=== PATIENT | female | born 1990 | race Caucasian/White ===

== ENCOUNTER 2016-12-31 15:50 | Outpatient (CLI) | payer OTHER ==
[2016-12-31 16:02] VITALS: BP 129/74; PULSE 99; RESP 16; TEMP 98.2
[2016-12-31] MEDS ORDERED: LACTATED RINGERS 1,000 ML IV SCH (16:45)
--- NOTE | 2017-01-01 14:04 | P.MSEPDOC ---
Presenting Problems - Arrival Data Date of Arrival on Unit: 12/31/16 Time of Arrival on Unit: 15:50 Mode of Transport: Ambulatory - Complaint OB-Reason for Admission/Chief Complaint: Decreased Movement Medical History - Information : 5 Para: 3 Term: 3 : 0 Abortions: Spontaneous or Elective: 1 Number of Living Children: 3 - Gestational Age Expected Date of Delivery: 01/29/17 Gestational Age by HECTOR (wks/days): 36 Weeks and 0 Days - History Complications: Prior Review of Systems - Review of Systems Constitutional: No problems Breast: No problems ENT: No problems Cardiovascular: No problems Respiratory: No problems Gastrointestinal: No problems Genitourinary: No problems Musculoskeletal: No problems Neurological: No problems Skin: No problems Vital Signs - Temperature Temperature: 98.2 F Temperature Source: Oral - Pulse Right Sitting Brachial Pulse Rate: 99 Pulse Assessment Method: Automatic Cuff - Respirations Respiratory Rate: 16 Oxygen Delivery Method: Room Air - Blood Pressure Right Arm Blood Pressure: 129/74 Blood Pressure Mean: 92 Blood Pressure Source: Automatic Cuff Medical Screen Scoring (Post) - Cervical Exam Dilation: Exam Deferred Effacement: Exam Deferred Membranes: Intact - Uterine Contractions Frequency: N/A - Maternal Vital Signs Maternal Temperature: N/A Maternal Blood Pressure: N/A Signs of Preeclampsia: N/A Maternal Respirations: N/A - Maternal Trauma Maternal Trauma: N/A - Assessment Heart Rate: 135 Heart Rate - NICHD Category: Category I (Normal) = 0 NST: Reactive Position: N/A Station: N/A - Total Score Total Score (Post): 0 - Post Treatment Level of Risk Post Treatment Level of Risk: Low (0-5) Physician Notification (Post) - Physician Notified Physician Notified Date: 12/31/16 Physician Notified Time: 16:30 Physician/Practitioner Notified:: Dr Breen Spoke With: Telephone New Order Received: Yes - Notification Comment Comment: Okay to discharge patient due to reactive heart tones. Disposition - Disposition OB Disposition: Discharge to home Discharge Date: 12/31/16 Discharge Time: 18:35 I agree with the RN Medical Screening Exam: Yes Risk & Benefit of care provided described in d/c instruction: Yes Diagnosis: DECREASED MOVEMENTS, UNSP TRIMESTER, UNSP
== END 2016-12-31 18:35 | disposition home or self-care (01) ==
LOC: FBPOP 15:50
PROVIDERS: ATTEND Obstetrics & Gynecology
DX: O36.8130 Decreased fetal movements, third trimester, not applicable or unspecified (principal); Z3A.36 36 weeks gestation of pregnancy
CPT/HCPCS: 59025; 96360; G0463; 99214

== ENCOUNTER 2017-01-05 12:50 | Outpatient (CLI) | payer OTHER ==
[2017-01-05 12:58] VITALS: BP 122/71; PULSE 101; RESP 17; TEMP 97.4
--- NOTE | 2017-01-09 08:18 | P.MSEPDOC ---
Presenting Problems - Arrival Data Date of Arrival on Unit: 01/05/17 Time of Arrival on Unit: 12:50 Mode of Transport: Ambulatory - Complaint OB-Reason for Admission/Chief Complaint: Pain Comment: headache last 4 days unrelieved with tylenol Medical History - Information : 5 Para: 3 Term: 3 : 0 Abortions: Spontaneous or Elective: 1 Number of Living Children: 3 - Gestational Age Expected Date of Delivery: 01/29/17 Gestational Age by HECTOR (wks/days): 37 Weeks and 1 Days Review of Systems - Review of Systems Constitutional: No problems Breast: No problems ENT: No problems Cardiovascular: No problems Respiratory: No problems Gastrointestinal: No problems Genitourinary: No problems Musculoskeletal: No problems Neurological: No problems Skin: No problems Vital Signs - Temperature Temperature: 97.4 F Temperature Source: Temporal Artery Scan - Pulse Right Brachial Pulse Rate: 101 Pulse Assessment Method: Automatic Cuff - Respirations Respiratory Rate: 17 Oxygen Delivery Method: Room Air O2 Sat by Pulse Oximetry: 98 - Blood Pressure Right Arm Blood Pressure: 122/71 Blood Pressure Mean: 88 Blood Pressure Source: Automatic Cuff Medical Screen Scoring (Pre) - Cervical Exam Dilation: Exam Deferred Effacement: Exam Deferred Membranes: Intact - Uterine Contractions Frequency: N/A Duration: N/A Intensity: N/A - Maternal Vital Signs Maternal Temperature: N/A Maternal Blood Pressure: N/A Signs of Preeclampsia: N/A Maternal Respirations: N/A - Maternal Trauma Maternal Trauma: N/A - Assessment Baseline FHR: 145 Heart Rate - NICHD Category: Category I (Normal) = 0 NST: Reactive Position: N/A Station: N/A - Total Score Total Score (Pre): 0 - Level of Risk Level of Risk: Low (0-5) Physician Notification (Pre) - Physician Notified Physician Notified Date: 01/05/17 Physician Notified Time: 13:11 Physician/Practitioner Notifed:: dr raymond Spoke With: dr raymond New Order Received: No - Notification Comment Comment: pt ok to dc home Disposition - Disposition OB Disposition: Discharge to home, Written follow up instructions reviewed Discharge Date: 01/05/17 Discharge Time: 13:35 I agree with the RN Medical Screening Exam: Yes Risk & Benefit of care provided described in d/c instruction: Yes Diagnosis: HEADACHE
== END 2017-01-05 13:35 | disposition home or self-care (01) ==
LOC: FBPOP 12:50
PROVIDERS: ATTEND Obstetrics & Gynecology
DX: O99.89 Other specified diseases and conditions complicating pregnancy, childbirth and the puerperium (principal); R51 Headache; Z3A.37 37 weeks gestation of pregnancy
CPT/HCPCS: 59025; G0463; 99213

== ENCOUNTER 2017-01-14 09:21 | Inpatient (IN) | payer OTHER ==
[2017-01-14] MEDS ORDERED: CITRIC ACID-SODIUM CITRATE 15 ML CUP PO ONE (09:29)
[2017-01-14] MEDS ORDERED: LACTATED RINGERS 1,000 ML IV ONE (09:29)
[2017-01-14] MEDS ORDERED: CLINDAMYCIN 600 MG in DEXTROSE 5% IN WATER 50 ML IVPB STA ×2 (09:58)
[2017-01-14 10:01] LABS: Basophils % (A) 0 %; CH 29.9; CHCM 34.1; Eosinophils # (A) 0.1 k/uL (0-0.7); Eosinophils % (A) 1 %; HCT 30.5 % (34.0-46.0); HDW 3.73; HGB 10.3 gm/dL (11.4-16.0); Luc # (Auto) 0.27; Luc % (Auto) 2; Lymphocytes # (A) 2.5 k/uL (1.0-4.8); Lymphocytes % (A) 20 %; MCH 29.8 pg (25.0-35.0); MCHC 33.8 g/dL (31.0-37.0); MCV 88.2 fL (80.0-100.0); Mean Platelet Volume 8.1; Monocytes # (A) 0.7 k/uL (0-1.0); Monocytes % (A) 6 %; Neutrophils # (A) 8.8 k/uL (1.3-7.7); Neutrophils % (A) 71 %; Poikilocytosis Slight; RBC 3.46 m/uL (3.80-5.40); RDW 13.5 % (11.5-15.5); WBC 12.4 k/uL (3.8-10.6); WBC (Perox) 12.84
[2017-01-14] MEDS: LACTATED RINGERS 1,000 ML IV SCH (12:02)
[2017-01-14] MEDS ORDERED: MORPHINE SULFATE (PF) 0.3 MG/0.3 ML SYR ONE (12:17)
[2017-01-14] MEDS ORDERED: KETOROLAC 30 MG/ML 1 ML VIAL ONE (12:17)
[2017-01-14] MEDS ORDERED: OXYTOCIN 10 UNIT/ML 1 ML VIAL ONE (12:17)
[2017-01-14] MEDS ORDERED: ONDANSETRON 4 MG/2 ML VIAL ONE (12:17)
[2017-01-14] MEDS ORDERED: NALBUPHINE 10 MG/ML AMPUL ONE (12:17)
[2017-01-14] MEDS ORDERED: ePHEDrine 50 MG/ML 1 ML AMP ONE (12:17)
--- NOTE | 2017-01-14 12:17 | P.HPOB ---
History of Present Illness H&P Date: 01/14/17 Chief Complaint: SROM, previous 26 year old presented at 37 weeks 6 days to my office today complaining of leaking fluid sine 830am. +ferning, +pooling. heart tones are 140-145 with moderate variability and reactive. cervix is closed/50/-3. She is not sheryl and will have a RLTCS with TL. Review of Systems All systems: negative Constitutional: Denies chills, Denies fever Eyes: denies blurred vision, denies pain Ears, nose, mouth and throat: Denies headache, Denies sore throat Cardiovascular: Denies chest pain, Denies shortness of breath Respiratory: Denies cough Gastrointestinal: Denies abdominal pain, Denies diarrhea, Denies nausea, Denies vomiting Genitourinary: Denies dysuria, Denies hematuria Musculoskeletal: Denies myalgias Integumentary: Denies pruritus, Denies rash Neurological: Denies numbness, Denies weakness Psychiatric: Denies anxiety, Denies depression Endocrine: Denies fatigue, Denies weight change Past Medical History Past Medical History: No Reported History Additional Past Medical History / Comment(s): Obstetric history: First was a spontaneous . The next 3 pregnancies were deliveries with no complications. This is her fifth . She has had care with me since 6 weeks gestation. A+, abs neg, Rub Imm, RPR NR, Hep B neg, HIV NR, normal 1hr GTT and normal anatomy US. History of Any Multi-Drug Resistant Organisms: None Reported Past Surgical History: Appendectomy, Section, Orthopedic Surgery Additional Past Surgical History / Comment(s): bunions Past Anesthesia/Blood Transfusion Reactions: No Reported Reaction Past Psychological History: No Psychological Hx Reported Smoking Status: Never smoker Past Alcohol Use History: None Reported Past Drug Use History: None Reported - Past Family History Mother History Unknown: Yes Family Medical History: No Reported History Medications and Allergies Allergies Allergy/AdvReac Type Severity Reaction Status Date / Time Cephalosporins Allergy Intermediate Rash/Hives Verified 01/14/17 09:28 Exam Osteopathic Statement: *. No significant issues noted on an osteopathic structural exam other than those noted in the History and Physical/Consult. - Vital Signs Vital signs: Vital Signs Temp Pulse Resp BP Pulse Ox 01/14/17 10:02 97.6 F 99 18 124/79 97 Intake and Output 01/13/17 01/14/17 01/14/17 22:59 06:59 14:59 Other: Weight 87.997 kg Patient Weight 01/15/17 06:59 Weight 87.997 kg HEart: RRR Lungs: CTAB Abdomen: soft, nontender Extremeties: neg tyler's Results Result Diagrams: 01/14/17 09:40 Abnormal Lab Results - Last 24 Hours (Table) 01/14/17 Range/Units 09:40 WBC 12.4 H (3.8-10.6) k/uL RBC 3.46 L (3.80-5.40) m/uL Hgb 10.3 L (11.4-16.0) gm/dL Hct 30.5 L (34.0-46.0) % Neutrophils # 8.8 H (1.3-7.7) k/uL Assessment and Plan (1) Spontaneous rupture of membranes Status: Acute (2) Previous section Status: Acute (3) Family planning Status: Acute Plan: 1. RLTCS with TL
[2017-01-14] MEDS ORDERED: NALOXONE 0.4 MG/ML 1 ML VIAL IV PRN (12:41)
[2017-01-14] MEDS ORDERED: diphenhydrAMINE 50 MG/ML 1 ML VIAL IVP PRN ×2 (12:41→13:05)
[2017-01-14] MEDS ORDERED: MORPHINE SULFATE 4 MG/ML SYRINGE IVP PRN (12:41)
[2017-01-14] MEDS ORDERED: ONDANSETRON 4 MG/2 ML VIAL IVP PRN (12:41)
[2017-01-14] MEDS ORDERED: METOCLOPRAMIDE 5 MG/ML 2 ML VIAL IVP PRN (13:05)
[2017-01-14] MEDS ORDERED: diphenhydrAMINE 50 MG CAP PO PRN (13:05)
[2017-01-14] MEDS ORDERED: ACETAMINOPHEN TAB 325 MG TAB PO PRN (13:05)
[2017-01-14] MEDS ORDERED: diphenhydrAMINE 25 MG CAP PO PRN (13:05)
[2017-01-14] MEDS ORDERED: Acetaminophen-Codeine 300-30mg TAB PO PRN ×2 (13:05)
[2017-01-14] MEDS ORDERED: SIMETHICONE 80 MG CHEWABLE PO PRN (13:05)
[2017-01-14] MEDS ORDERED: ZOLPIDEM 5 MG TAB PO PRN (13:05)
--- NOTE | 2017-01-14 13:09 | P.OP ---
Date of Procedure: 01/14/17 Preoperative Diagnosis: 1. at 37 weeks and 6 days 2. Spontaneous rupture membranes 3. Previous section 4. Family planning Postoperative Diagnosis: 1. at 37 weeks and 6 days 2. Spontaneous rupture membranes 3. Previous section 4. Family planning Procedure(s) Performed: Repeat low transverse with tubal ligation Anesthesia: spinal Surgeon: Selin Flores Professor Of Religion #1: Dilia Buchanan Estimated Blood Loss (ml): 500 IV fluids (ml): 800 Urine output (ml): 75 Pathology: other (Placenta, portions of bilateral fallopian tubes) Condition: stable Disposition: floor Operative Findings: Viable female, Apgars 9, 9, weight 7 lbs. 4 oz. Description of Procedure: Patient was taken to the operating room where spinal anesthesia was found be adequate. She was prepped and draped in normal sterile fashion in dorsal supine position with a leftward tilt. Pfannenstiel skin incision was made the scalpel and carried through to the underlying layer of fascia with the scalpel. Fascia was incised in midline and carried bilaterally with the Leyva scissors. The superior aspect of the fascial incision was grasped with Parker clamps elevated and the underlying rectus muscles dissected off with the Leyva's. Attention was then turned to inferior aspect of same incision which in a similar fashion was grasped tented up and the underlying rectus muscles dissected off with the Leyva's. The rectus muscles were the midline and the peritoneum was identified tented up and entered sharply with the scalpel. The incision was extended superiorly and inferiorly with good visualization of the bladder. The bladder blade was inserted and the vesicouterine peritoneum was incised the Metzenbaums then carried bilaterally and bladder flap created digitally. A low transverse incision was then made on the uterus with the scalpel. This was carried bilaterally and digital manner. 's head delivered atraumatically, nose and mouth bulb suctioned, cord clamped and cut, infant handed off to waiting nurses. Apgars 9,9, weight 7 lbs. 4 oz. Placenta delivered manually, intact with three-vessel cord. The uterus is exteriorized and cleared of all clots and debris. The uterine incision was closed with 0 Vicryl in a running locked fashion. Both ovaries and tubes appeared normal. The right fallopian tube was grasped with a hemostat and a window was made in the mesosalpinx with the Bovie. The right fallopian tube was doubly ligated and a portion was removed. The pedicles were cauterized with the Bovie. The left fallopian tube was grasped with a hemostat and a window was made in the mesosalpinx with the Bovie. The left fallopian tube was doubly ligated and a portion was removed. The pedicles were cauterized with the Bovie. The uterus was placed back into the abdomen. The peritoneum was reapproximated using 2-0 Vicryl in a running fashion. The muscles were reapproximated using 2-0 Vicryl in interrupted fashion. The fascia was reapproximated using 0 Vicryl in a running fashion. The subcutaneous tissues closed with 3-0 Vicryl running fashion. The skin was closed mark. Patient tolerated the procedure well, sponge and instrument counts were correct times 2 and she was taken to the recovery room in stable condition.
[2017-01-14] MEDS ORDERED: OXYTOCIN 20 UNITS/1000 ML NS 1,000 ML IV SCH (13:15)
[2017-01-14] MEDS: diphenhydrAMINE 50 MG/ML 1 ML VIAL IVP PRN ×2 (14:33→23:15)
[2017-01-14] MEDS ORDERED: HYDROmorphone 1 MG/ML 1 ML SYRINGE IVP STA (16:36)
[2017-01-14 16:39] LABS: Basophils % (A) 0 %; CH 30.2; CHCM 34.7; Eosinophils # (A) 0.1 k/uL (0-0.7); Eosinophils % (A) 1 %; HCT 26.3 % (34.0-46.0); Luc # (Auto) 0.17; Luc % (Auto) 1; Lymphocytes % (A) 14 %; MCHC 34.2 g/dL (31.0-37.0); MCV 87.8 fL (80.0-100.0); Mean Platelet Volume 8.4; Monocytes # (A) 0.8 k/uL (0-1.0); Monocytes % (A) 4 %; Neutrophils % (A) 81 %; Poikilocytosis Slight; RDW 13.3 % (11.5-15.5); WBC 21.1 k/uL (3.8-10.6); WBC (Perox) 19.81
[2017-01-14] MEDS: KETOROLAC 30 MG/ML 1 ML VIAL IVP SCH ×2 (17:13→23:11)
[2017-01-15] MEDS: SENNOSIDES-DOCUSATE SODIUM 1 EACH TAB PO SCH ×3 (00:20→19:42)
[2017-01-15] MEDS: LACTATED RINGERS 1,000 ML IV SCH ×3 (00:43→08:29)
[2017-01-15] MEDS: KETOROLAC 30 MG/ML 1 ML VIAL IVP SCH ×2 (05:43→12:42)
[2017-01-15 07:26] LABS: Basophils % (A) 0 %; CH 29.6; CHCM 34.3; Eosinophils # (A) 0.1 k/uL (0-0.7); Eosinophils % (A) 1 %; HDW 3.97; Luc # (Auto) 0.14; Luc % (Auto) 1; Lymphocytes # (A) 2.2 k/uL (1.0-4.8); Lymphocytes % (A) 20 %; MCH 29.4 pg (25.0-35.0); MCHC 33.8 g/dL (31.0-37.0); MCV 87.1 fL (80.0-100.0); Mean Platelet Volume 8.8; Monocytes # (A) 0.7 k/uL (0-1.0); Monocytes % (A) 6 %; Neutrophils # (A) 7.6 k/uL (1.3-7.7); Neutrophils % (A) 71 %; Poikilocytosis Slight; RBC 2.12 m/uL (3.80-5.40); RDW 13.6 % (11.5-15.5); WBC 10.7 k/uL (3.8-10.6); WBC (Perox) 10.06
[2017-01-15 07:36] LABS: HCT 18.4 % (34.0-46.0); HGB 6.2 gm/dL (11.4-16.0)
[2017-01-15] MEDS ORDERED: HYDROmorphone 1 MG/ML 1 ML SYRINGE IVP PRN (08:24)
--- NOTE | 2017-01-15 08:35 | P.PNOBGPC ---
Subjective - Subjective Principal diagnosis: S/P RLTCS with TL POD #1 Interval history: Patient seen and examined. Denies N/V, F/C, CP, SOB, calf pain. She is having some incisional and uterine discomfort rating an 8/10 despite tylenol #3 and toradol. Will give one dose of dilaudid and then change the tylenol #3 to norco. She did have some bleeding after the surgery yesterday, passed several large clots. I expressed those clots last night and her bleeding has slowed. Her hemoglobin is now 6.2 though, she has acute blood loss anemia. Her BP is a little low, her pulse is normal and output is good. I am recommending a transfusion for her, R/B/A discussed. Patient reports: Reports appetite normal, Reports voiding normally, Reports ambulating normally : doing well Objective - Vital Signs Latest vital signs: Vital Signs Temp Pulse Resp BP Pulse Ox 01/15/17 07:30 98.3 F 78 16 81/39 98 01/15/17 05:00 100 01/15/17 04:00 98.3 F 85 14 97/35 100 01/15/17 01:00 100 01/15/17 00:45 16 91/41 01/14/17 23:55 98.4 F 85 16 86/39 100 01/14/17 21:00 99 01/14/17 19:45 97.6 F 105 H 18 107/57 99 01/14/17 17:18 96 01/14/17 17:07 117 H 18 99/50 99 01/14/17 16:47 129 H 18 93/64 98 01/14/17 16:45 144 H 18 98/54 98 01/14/17 16:00 121 H 18 103/55 100 01/14/17 15:02 97.0 F L 73 18 106/53 100 01/14/17 14:32 96.8 F L 71 18 116/59 99 01/14/17 14:02 78 18 127/58 99 01/14/17 13:47 96.7 F L 78 18 125/63 100 01/14/17 13:41 100 01/14/17 13:32 78 18 122/56 100 01/14/17 13:17 78 18 124/59 98 01/14/17 13:02 97.0 F L 79 18 119/55 98 01/14/17 10:02 97.6 F 99 18 124/79 97 Intake and Output 01/14/17 01/15/17 01/15/17 22:59 06:59 14:59 Intake Total 1000 Output Total 450 1500 200 Balance -450 -500 -200 Intake: IV 1000 Lactated Ringers 1,000 ml 1000 @ 4000 mls/hr IV .Q15M ONE Rx#:[id number] Output: Urine 450 1500 200 Other: Voiding Method Indwelling Catheter Indwelling Catheter Indwelling Catheter - Exam Lungs: bilateral: normal Chest: Normal S1, Normal S2 Extremities: Present: normal Abdomen: Present: normal appearance, soft. Absent: distention, tenderness Incision: Present: normal, dry, intact Uterus: Present: normal, firm - Labs Labs: Abnormal Lab Results - Last 24 Hours (Table) 01/14/17 01/14/17 01/14/17 Range/Units 09:40 09:40 16:26 WBC 12.4 H 21.1 H (3.8-10.6) k/uL RBC 3.46 L 3.00 L (3.80-5.40) m/uL Hgb 10.3 L 9.0 L (11.4-16.0) gm/dL Hct 30.5 L 26.3 L (34.0-46.0) % Neutrophils # 8.8 H 17.0 H (1.3-7.7) k/uL Crossmatch See Detail 01/15/17 Range/Units 07:00 WBC 10.7 H (3.8-10.6) k/uL RBC 2.12 L (3.80-5.40) m/uL Hgb 6.2 L* D (11.4-16.0) gm/dL Hct 18.4 L* (34.0-46.0) % Neutrophils # (1.3-7.7) k/uL Crossmatch Assessment and Plan (1) Spontaneous rupture of membranes Current Visit: Yes Status: Resolved Code(s): ZYQ0502 - SNOMED Code(s): 385036045 (2) Previous section Current Visit: Yes Status: Resolved Code(s): Z98.891 - HISTORY OF UTERINE SCAR FROM PREVIOUS SURGERY SNOMED Code(s): 574383408 (3) Family planning Current Visit: Yes Status: Resolved Code(s): Z30.09 - ENCOUNTER FOR OTH GENERAL CNSL AND ADVICE ON CONTRACEPTION SNOMED Code(s): 23315216 (4) Status post repeat low transverse section Current Visit: No Status: Acute Code(s): Z98.89 - OTHER SPECIFIED POSTPROCEDURAL STATES * DO NOT USE * SNOMED Code(s): 233630382 (5) Status post tubal ligation at time of delivery, current hosp Narrative/Plan: 1. change pain meds 2. blood transfusion 3. strict I/O's 4. continue clear diet until flatus. Current Visit: Yes Status: Acute Code(s): O80 - ENCOUNTER FOR FULL-TERM UNCOMPLICATED DELIVERY; Z30.2 - ENCOUNTER FOR STERILIZATION SNOMED Code(s): 388359140
[2017-01-15] MEDS: SODIUM CHLORIDE 0.9% 1,000 ML IV SCH ×2 (10:05→22:31)
--- NOTE | 2017-01-15 10:45 | P.PN ---
Progress Note - Text Date:01-15-17 Time:[07:14] The patient is status post section Vital signs stable VAS:[0-10] Patient has no complaints of pain. The patient incurred some minimal itching yesterday, this itching is now subsiding. Pain meds to be managed by service.
[2017-01-15] MEDS: HYDROcodone/APAP 7.5-325MG 1 EACH TAB PO PRN ×2 (11:22→17:26)
[2017-01-15] MEDS: IBUPROFEN 600 MG TAB PO PRN ×2 (12:42→19:41)
[2017-01-15 18:37] VITALS: RESP 16
[2017-01-15] MEDS ORDERED: HYDROcodone/APAP 5-325MG 1 EACH TAB PO PRN (22:24)
[2017-01-15] MEDS: HYDROcodone/APAP 5-325MG 1 EACH TAB PO PRN (23:18)
[2017-01-16] MEDS: KETOROLAC 30 MG/ML 1 ML VIAL IVP SCH (02:08)
[2017-01-16] MEDS: IBUPROFEN 600 MG TAB PO PRN ×2 (02:20→08:49)
[2017-01-16] MEDS: HYDROcodone/APAP 5-325MG 1 EACH TAB PO PRN (05:16)
[2017-01-16 07:08] LABS: Hypochromasia Slight
[2017-01-16 07:24] LABS: Basophils % (A) 0 %; CH 30.2; CHCM 34.3; Eosinophils # (A) 0.2 k/uL (0-0.7); Eosinophils % (A) 2 %; HCT 25.1 % (34.0-46.0); HDW 3.81; Luc # (Auto) 0.17; Luc % (Auto) 2; Lymphocytes # (A) 2.5 k/uL (1.0-4.8); Lymphocytes % (A) 33 %; MCH 30.1 pg (25.0-35.0); MCHC 33.9 g/dL (31.0-37.0); MCV 88.8 fL (80.0-100.0); Mean Platelet Volume 8.2; Monocytes # (A) 0.7 k/uL (0-1.0); Monocytes % (A) 9 %; Neutrophils # (A) 4.1 k/uL (1.3-7.7); Neutrophils % (A) 54 %; Poikilocytosis Slight; RBC 2.82 m/uL (3.80-5.40); RDW 13.7 % (11.5-15.5); WBC 7.5 k/uL (3.8-10.6); WBC (Perox) 7.85
[2017-01-16 07:34] LABS: HGB 8.5 gm/dL (11.4-16.0)
[2017-01-16] MEDS: SENNOSIDES-DOCUSATE SODIUM 1 EACH TAB PO SCH (08:48)
--- NOTE | 2017-01-16 09:11 | P.DS ---
Providers Date of admission: 01/14/17 09:21 Expected date of discharge: 01/16/17 Attending physician: Selin Flores - Discharge Diagnosis(es) (1) Spontaneous rupture of membranes Current Visit: Yes Status: Resolved (2) Previous section Current Visit: Yes Status: Resolved (3) Family planning Current Visit: Yes Status: Resolved (4) Status post repeat low transverse section Current Visit: No Status: Acute (5) Status post tubal ligation at time of delivery, current hosp Current Visit: Yes Status: Acute (6) Acute blood loss anemia Current Visit: Yes Status: Acute Hospital Course: Patient presented with SROM and underwent repeat low transverse . She had some uterine bleeding after delivery. Her hemoglobin dropped to 6.2 and her BP was low she required 2 units of PRBCs and her hemoglobin maría to 8.5. Her pain is controlled. She is tolerating a reg diet. She will be discharged home POD #2 in stable condition to follow up with me in 1 week. Plan - Discharge Summary New Discharge Prescriptions: ALPRAZolam [Xanax] 0.25 mg PO TID PRN #20 tab PRN Reason: Anxiety HYDROcodone/APAP 7.5-325MG [[place] 7.5-325] 1 tab PO Q4H PRN #30 tab PRN Reason: Pain Ibuprofen [Motrin] 600 mg PO Q6HR PRN #30 tab PRN Reason: Mild Pain Or Fever >= 100.5 Discharge Medication List Kzg-[id number]-Lkvam Acid [-U Capsule] 1 tab PO DAILY 01/14/17 [ History] ALPRAZolam [Xanax] 0.25 mg PO TID PRN #20 tab 01/16/17 [Rx] HYDROcodone/APAP 7.5-325MG [[place] 7.5-325] 1 tab PO Q4H PRN #30 tab 01/16/17 [Rx ] Ibuprofen [Motrin] 600 mg PO Q6HR PRN #30 tab 01/16/17 [Rx] Follow up Appointment(s)/Referral(s): Selin Flores DO [Doctor of Osteopathic Medicine] - 1 Week
[2017-01-16 09:54] VITALS: BP 111/60; PULSE 76; TEMP 98.3
[2017-01-16] MEDS ORDERED: MEASLES-MUMPS-RUBELLA VACC/PF 12,500 UNIT/0.5 ML VIAL SQ ONE (10:50)
== END 2017-01-16 11:21 | disposition home or self-care (01) | DRG 765 ==
LOC: 4FBP 09:21
PROVIDERS: ADMIT Obstetrics & Gynecology; ATTEND Obstetrics & Gynecology
PROC: 0UB70ZZ Excision of Bilateral Fallopian Tubes, Open Approach (ICD-10-PCS; 2017-01-14)
PROC: 10D00Z1 Extraction of Products of Conception, Low, Open Approach (ICD-10-PCS; principal; 2017-01-14 12:00)
PROC: 30230N1 Transfusion of Nonautologous Red Blood Cells into Peripheral Vein, Open Approach (ICD-10-PCS; 2017-01-15)
DX: O34.211 Maternal care for low transverse scar from previous cesarean delivery (principal); D62 Acute posthemorrhagic anemia; O99.02 Anemia complicating childbirth; Z37.0 Single live birth; Z3A.37 37 weeks gestation of pregnancy
CPT/HCPCS: 85025; 86850; 86900; 86901; 86920; 88302; 88307; 90707

== ENCOUNTER 2017-06-05 17:54 | Emergency (ER) | payer OTHER ==
--- NOTE | 2017-06-05 19:30 | ED ---
General Adult HPI - General Chief complaint: Extremity Problem,Nontraumatic Stated complaint: LEFT FOOT AND ANKLE PAIN Time Seen by Provider: 06/05/17 19:11 Source: patient Mode of arrival: ambulatory Limitations: no limitations - History of Present Illness Initial comments: This is a 27-year-old female who presents to the emergency department today with chief complaint of left foot pain. Patient reports that for the past 2 days there has been sharp pain in her lateral left foot with radiation up into the left lateral lower extremity. Pain is only prevalent with weight-bearing and ascending stairs. There is no pain when patient is at rest, however she does admit to feeling numbness. Patient reports there was no specific injury or trauma that occurred. Denies fever, chills, chest pain, shortness of breath, abdominal pain, nausea, vomiting, dysuria, hematuria, tingling, headache or vision changes. - Related Data Home Medications Medication Instructions Recorded Confirmed Qfp-Bzlq-Xtfdz Acid 1 tab PO DAILY 01/14/17 01/14/17 [-U Capsule] Previous Rx's Medication Instructions Recorded ALPRAZolam [Xanax] 0.25 mg PO TID PRN #20 tab 01/16/17 HYDROcodone/APAP 7.5-325MG [[place] 1 tab PO Q4H PRN #30 tab 01/16/17 7.5-325] Ibuprofen [Motrin] 600 mg PO Q6HR PRN #30 tab 01/16/17 Allergies Allergy/AdvReac Type Severity Reaction Status Date / Time Cephalosporins Allergy Intermediate Rash/Hives Verified 06/05/17 18:10 Review of Systems ROS Statement: Those systems with pertinent positive or pertinent negative responses have been documented in the HPI. ROS Other: All systems not noted in ROS Statement are negative. Past Medical History Past Medical History: No Reported History Additional Past Medical History / Comment(s): Obstetric history: First was a spontaneous . The next 3 pregnancies were deliveries with no complications. This is her fifth . She has had care with me since 6 weeks gestation. A+, abs neg, Rub Imm, RPR NR, Hep B neg, HIV NR, normal 1hr GTT and normal anatomy US. History of Any Multi-Drug Resistant Organisms: None Reported Past Surgical History: Appendectomy, Section, Orthopedic Surgery Additional Past Surgical History / Comment(s): bunions Past Anesthesia/Blood Transfusion Reactions: No Reported Reaction Past Psychological History: No Psychological Hx Reported Smoking Status: Never smoker Past Alcohol Use History: Occasional Past Drug Use History: None Reported - Past Family History Mother History Unknown: Yes Family Medical History: No Reported History General Exam - General Exam Comments Initial Comments: General: Awake and alert, well-developed; in no apparent distress. HEENT: Head atraumatic, normocephalic. Pupils are equal, round and reactive to light. Extraocular movements intact. Neck: Supple. Normal ROM. Cardiovascular: Regular rate and rhythm. No murmurs, rubs or gallops. Chest symmetrical. Respiratory: Lungs clear to auscultation bilaterally. No wheezes, rales or rhonchi. Normal respiratory effort with no use of accessory muscles. Musculoskeletal: Mild tenderness with palpation of left lateral foot. Mild tenderness with palpation of distal lateral lower extremity. No swelling or erythema noted. No bony point tenderness. Skin: [place], warm and dry without rashes or lesions. Neurological: Alert and oriented x3. CN II-XII grossly intact. Speech is fluent and answers are appropriate. No focal neuro deficits. Psychiatric: Normal mood and affect. No overt signs of depression or anxiety noted. Limitations: no limitations Course Vital Signs 06/05/17 06/05/17 18:07 19:50 Temperature 97.8 F 98.0 F Pulse Rate 64 89 Respiratory 20 18 Rate Blood Pressure 131/77 121/78 O2 Sat by Pulse 99 98 Oximetry Medical Decision Making - Medical Decision Making Left ankle x-ray revealed no evidence for acute fracture. Patient will be discharged home with instructions to ice, elevate and keep ankle in compression. Follow up with PCP within 1-2 days. Disposition Clinical Impression: Left ankle strain Disposition: HOME SELF-CARE Condition: Good Instructions: Ankle Strain (ED) Additional Instructions: Please follow up with PCP within 1-2 days. Return to ED if symptoms should worsen or any concerns arise. Referrals: Ankit Stark MD [Primary Care Provider] - 1-2 days Time of Disposition: 19:48
--- NOTE | 2017-06-05 19:40 | XR ---
EXAMINATION TYPE: XR ankle complete LT DATE OF EXAM: 06/05/2017 COMPARISON: NONE HISTORY: Pain TECHNIQUE: 3 views of the left ankle are submitted for evaluation. FINDINGS: There is no evidence for fracture or dislocation. Ankle mortise is intact. Soft tissues are within normal limits. IMPRESSION: 1. No evidence for acute fracture.
[2017-06-05 19:51] VITALS: BP 121/78; PULSE 89; RESP 18; TEMP 98
== END 2017-06-05 19:52 | disposition home or self-care (01) ==
LOC: EC 17:54
DX: S93.402A Sprain of unspecified ligament of left ankle, initial encounter (principal); Z79.899 Other long term (current) drug therapy; Z88.1 Allergy status to other antibiotic agents
CPT/HCPCS: 99283

== ENCOUNTER → 2017-11-27 | Outpatient (CLI) | payer OTHER ==
--- NOTE | 2017-11-27 10:42 | US ---
EXAMINATION TYPE: US pelvic complete DATE OF EXAM: 11/27/2017 COMPARISON: NONE CLINICAL HISTORY: 27-year-old female N92.0 menorrhagia N94.10 dyspareunia. Heavier cycles since her f ourth child was born 10 months ago, tubal ligation, 2 c-sections TECHNIQUE: Transabdominal sonographic images of the pelvis were acquired. Date of LMP: 11/13/2017 FINDINGS: Jewelry Making Instructor notes: Patient came 30 mins late to appointment and felt full. Uterus: Anteverted but retroflexed measuring 8.2 x 5.2 x 4.0 cm Endometrial Stripe: 1.0 cm Right Ovary: 3.3 x 1.5 x 2.0 cm Left Ovary: 2.5 x 1.5 x 2.1 cm Small follicles are present on the right. No evident adnexal abnormality or cul-de-sac free fluid. IMPRESSION: No specific abnormality of the pelvis on transabdominal scanning.
== END | disposition home or self-care (01) ==
LOC: RADUSWWP 08:50
PROVIDERS: ATTEND Obstetrics & Gynecology
DX: N92.0 Excessive and frequent menstruation with regular cycle (principal); N94.10 Unspecified dyspareunia
CPT/HCPCS: 76856

== ENCOUNTER → 2018-03-26 | Outpatient (CLI) | payer OTHER ==
[2018-03-26 16:53] LABS: Blood Urea Nitrogen 15 mg/dL (7-17)
[2018-03-26 17:11] LABS: HCG,Quantitative Serum <2.4 mIU/mL
== END | disposition home or self-care (01) ==
LOC: LABWHC1 15:23
PROVIDERS: ATTEND Obstetrics & Gynecology
DX: N64.3 Galactorrhea not associated with childbirth (principal)
CPT/HCPCS: 36415; 82565; 84146; 84439; 84443; 84481; 84520; 84702

== ENCOUNTER → 2019-11-06 | Outpatient (CLI) | payer OTHER ==
[2019-11-06 10:34] LABS: HCT 40.9 % (34.0-46.0); HGB 13.7 gm/dL (11.4-16.0); MCH 29.2 pg (25.0-35.0); MCHC 33.4 g/dL (31.0-37.0); MCV 87.3 fL (80.0-100.0); Mean Platelet Volume 8.4; Platelet Count 265 k/uL (150-450); RBC 4.68 m/uL (3.80-5.40); RDW 12.6 % (11.5-15.5); WBC 4.4 k/uL (3.8-10.6)
[2019-11-06 10:37] LABS: Partial Thromboplastin Time 25.3 sec (22.0-30.0); Prothrombin Time 10.3 sec (9.0-12.0)
[2019-11-06 16:22] LABS: African American GFR (CKD) 100.8 (60.0-200.0); Albumin 4.7 g/dL (3.80-4.90); Albumin/Globulin Ratio 1.57 (1.60-3.17); Anion Gap 9.9 mmol/L (4.00-12.00); BUN/Creat Ratio 13.33 Ratio (12.00-20.00); Carbon Dioxide 26.1 mmol/L (21.6-31.8); Total Bilirubin 0.4 mg/dL (0.3-1.2); Total Protein 7.7 g/dL (6.2-8.2)
[2019-11-06 17:04] LABS: HIV 1 AB Non-Reactive (Non-Reactive); HIV 2 AB Non-Reactive (Non-Reactive); HIV AB P24 Non-Reactive (Non-Reactive); HIV P24 AG Non-Reactive (Non-Reactive)
== END | disposition home or self-care (01) ==
LOC: LABWHC1 09:42
PROVIDERS: ATTEND Obstetrics & Gynecology Gynecology
DX: Z01.812 Encounter for preprocedural laboratory examination (principal)
CPT/HCPCS: 36415; 80053; 85027; 85610; 85730; 86707; 86803; 87350; 87390

== ENCOUNTER → 2020-07-04 | Outpatient (CLI) | payer OTHER ==
--- NOTE | 2020-07-05 09:17 | FL ---
EXAMINATION TYPE: FL hysterosalpingography DATE OF EXAM: 07/04/2020 CLINICAL HISTORY: History of tubal ligation 2017 with recent reversal desiring fertility TECHNIQUE: Fluoroscopic assisted hysterosalpingogram. A total 64 seconds of fluoroscopic time utilize d. 5 cc of Isovue-[id number] was utilized. COMPARISON: None. FINDINGS: Procedure explained to patient. Benefits, alternatives, and risks discussed. Consent obtain ed. Preprocedure forest engineer image shows Surgical clips overlie the right upper pelvis near sacroiliac join t, patient states history of prior appendectomy. Speculum was inserted using sterile technique. Betadine is used to cleanse the cervical os. Catheter is inserted into the cervical canal. Balloon is inflated. Under fluoroscopic guidance there is succes sful opacification of the endometrium and bilateral fallopian tubes, there is free spillage documente d on the left and subsequent free spillage documented on the right. Contour of endometrium appears sa tisfactory. Fallopian tubes show no suspicious abnormality. At this point the balloon is deflated and catheter is withdrawn. Speculum was removed. Patient tolerated procedure well without any immediate complication and left the radiology department shortly after the procedure in stable condition. IMPRESSION: As Above. Successful intraperitoneal spillage documented bilaterally consistent with suc cessful reversal of prior tubal ligation.
== END | disposition home or self-care (01) ==
LOC: RADUSWWP 13:25
PROVIDERS: ATTEND Obstetrics & Gynecology
DX: Z98.51 Tubal ligation status (principal)
CPT/HCPCS: 58340; 74740; Q9967

== ENCOUNTER 2021-12-01 17:39 | Emergency (ER) | payer OTHER ==
[2021-12-01 18:54] VITALS: RESP 18; TEMP 98
--- NOTE | 2021-12-01 21:00 | US ---
EXAMINATION TYPE: Transabdominal DATE OF EXAM: 12/01/2021 8:10 PM COMPARISON: NONE CLINICAL HISTORY: vaginal bleeding. Pt states vaginal bleeding that started today EXAM PERFORMED: Transvaginal (TV) and Transabdominal (TA) EXAM MEASUREMENTS: GESTATIONAL AGE / DATING Physician Established: Not yet established Dates by LMP: (5 weeks/2 days) EDC: 08/01/2022 Dates by First Scan: No previous this is first scan Dates by Current Scan for: No IUP seen at this time MATERNAL ANATOMY Uterus: 8.0 x 4.2 x 4.9 cm Right Ovary: 3.0 x 2.1 x 2.8 cm Left Ovary: 2.5 x 2.4 x 2.6 cm Post CDS / Adnexa: wnl Presence of free fluid: No Presence of corpus luteal cyst: No GESTATION / SURVEY IUP: No IUP seen at this time Date of LMP: 10/25/2021 Beta HcG (if available): Not available at this time No evidence of IUP at this time IMPRESSION: Uterus is empty. No adnexal mass. No evidence of ectopic .
--- NOTE | 2021-12-02 00:21 | ED ---
Female Urogenital HPI - General Chief complaint: Vaginal Bleeding Stated complaint: 5 wks preg/bleeding Time Seen by Provider: 12/02/21 00:07 Source: patient, family, RN notes reviewed Mode of arrival: ambulatory Limitations: no limitations - History of Present Illness Initial comments: This is a pleasant 31-year-old female who is A1 with an ectopic when she was young. She presents today stating that she is having some vaginal bleeding. 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 Patient states according to her last menstrual. She should be about 5 weeks . She has an upcoming appointment on January [address] Flores. Patient states that the bleeding is slowing down. She had some mild cramping. Patient had an ultrasound ordered in triage which shows no intrauterine . Patient denies any urinary symptomology. No fever or chills. No headache, no fever or chills, no changes in vision or hearing, no sore throat or difficulty with speech, no neck pain, no chest pain or shortness of breath, no abdominal pain, no nausea or vomiting, no changes in urination or bowel movements, no numbness or tingling, no extremity pain, no skin rashes or lesions. MD Complaint: vaginal bleeding Last Menstrual Period: 10/25/21 - Related Data Home Medications Medication Instructions Recorded Confirmed Urj-Gmin-Vhfwf Acid 1 tab PO DAILY 01/14/17 01/14/17 [-U Capsule] Previous Rx's Medication Instructions Recorded ALPRAZolam [Xanax] 0.25 mg PO TID PRN #20 tab 01/16/17 HYDROcodone/APAP 7.5-325MG [Sevier 1 tab PO Q4H PRN #30 tab 01/16/17 7.5-325] Ibuprofen [Motrin] 600 mg PO Q6HR PRN #30 tab 01/16/17 Allergies Allergy/AdvReac Type Severity Reaction Status Date / Time Cephalosporins Allergy Intermediate Rash/Hives Verified 12/01/21 18:54 Review of Systems ROS Statement: Those systems with pertinent positive or pertinent negative responses have been documented in the HPI. ROS Other: All systems not noted in ROS Statement are negative. Past Medical History Past Medical History: No Reported History Additional Past Medical History / Comment(s): Obstetric history: First was a spontaneous . The next 3 pregnancies were deliveries with no complications. This is her fifth . She has had care with me since 6 weeks gestation. A+, abs neg, Rub Imm, RPR NR, Hep B neg, HIV NR, normal 1hr GTT and normal anatomy US. History of Any Multi-Drug Resistant Organisms: None Reported Past Surgical History: Appendectomy, Section, Orthopedic Surgery Additional Past Surgical History / Comment(s): bunions Past Anesthesia/Blood Transfusion Reactions: No Reported Reaction Past Psychological History: No Psychological Hx Reported Smoking Status: Never smoker Past Alcohol Use History: Occasional Past Drug Use History: None Reported - Past Family History Mother History Unknown: Yes Family Medical History: No Reported History General Exam Limitations: no limitations General appearance: alert, in no apparent distress Head exam: Present: atraumatic, normocephalic, normal inspection Eye exam: Present: normal appearance, PERRL, EOMI. Absent: scleral icterus, conjunctival injection, periorbital swelling ENT exam: Present: normal exam, mucous membranes moist Neck exam: Present: normal inspection, full ROM. Absent: tenderness, meningismus, lymphadenopathy Respiratory exam: Present: normal lung sounds bilaterally. Absent: respiratory distress, wheezes, rales, rhonchi, stridor Cardiovascular Exam: Present: regular rate, normal rhythm, normal heart sounds. Absent: systolic murmur, diastolic murmur, rubs, gallop, clicks GI/Abdominal exam: Present: soft, normal bowel sounds. Absent: distended, tenderness, guarding, rebound, rigid Extremities exam: Present: normal inspection, full ROM, normal capillary refill. Absent: tenderness, pedal edema, joint swelling, calf tenderness Back exam: Present: normal inspection Neurological exam: Present: alert, oriented X3, CN II-XII intact Psychiatric exam: Present: normal affect, normal mood Skin exam: Present: warm, dry, intact, normal color. Absent: rash Course Vital Signs 12/01/21 12/02/21 18:51 00:29 Temperature 98.0 F Pulse Rate 68 78 Respiratory 18 18 Rate Blood Pressure 149/92 128/81 O2 Sat by Pulse 100 97 Oximetry Medical Decision Making - Medical Decision Making Ultrasound shows no evidence of intrauterine or ectopic . Serum beta hCG is 4.3. Apparently the patient had an hCG done on Saturday and it was 50. This is a significant drop. I did discuss this with the patient and told her and all likelihood she has had a miscarriage. She voiced understanding. Patient was Rh+. Going to have the patient do 1 more serum beta-hCG and have her follow-up with her education professional. We did discuss pelvic examination. Patient is deferring this. Patient was hemodynamic stable at discharge. The case was discussed in detail with ED attending physician. Presentation, findings, treatment plan discussed in detail. Patient was told to return to the ER for any signs or symptoms worsen. Told to return immediately if any other problems arise. All questions answered. Treatment plan discussed. Patient in agreement Every effort has been made to ensure accuracy of this dictation. However, due to the limitations of electronic medical records and dictation devices, errors in charting still occur. Advised pelvic rest until recheck. - Lab Data Result diagrams: 12/02/21 00:25 12/02/21 00:25 Lab Results 12/02/21 12/02/21 12/02/21 Range/Units 00:25 00:25 00:25 WBC 8.3 (3.8-10.6) k/uL RBC 4.34 (3.80-5.40) m/uL Hgb 12.9 (11.4-16.0) gm/dL Hct 38.2 (34.0-46.0) % MCV 88.0 (80.0-100.0) fL MCH 29.8 (25.0-35.0) pg MCHC 33.9 (31.0-37.0) g/dL RDW 13.4 (11.5-15.5) % Plt Count 312 (150-450) k/uL MPV 8.1 Neutrophils % 60 % Lymphocytes % 31 % Monocytes % 5 % Eosinophils % 2 % Basophils % 0 % Neutrophils # 5.0 (1.3-7.7) k/uL Lymphocytes # 2.5 (1.0-4.8) k/uL Monocytes # 0.4 (0-1.0) k/uL Eosinophils # 0.2 (0-0.7) k/uL Basophils # 0.0 (0-0.2) k/uL Sodium 138 (137-145) mmol/L Potassium 4.1 (3.5-5.1) mmol/L Chloride 104 (98-107) mmol/L Carbon Dioxide 26 (22-30) mmol/L Anion Gap 8 mmol/L BUN 11 (7-17) mg/dL Creatinine 0.74 (0.52-1.04) mg/dL Est GFR (CKD-EPI)AfAm >90 (>60 ml/min/1.73 sqM) Est GFR (CKD-EPI)NonAf >90 (>60 ml/min/1.73 sqM) Glucose 114 H (74-99) mg/dL Calcium 9.2 (8.4-10.2) mg/dL Total Bilirubin 0.4 (0.2-1.3) mg/dL AST 24 (14-36) U/L ALT 21 (4-34) U/L Alkaline Phosphatase 47 (38-126) U/L Total Protein 7.5 (6.3-8.2) g/dL Albumin 4.2 (3.5-5.0) g/dL HCG, Quant 4.3 mIU/mL Urine Color Urine Appearance (Clear) Urine pH (5.0-8.0) Ur Specific Marshall (1.001-1.035) Urine Protein (Negative) Urine Glucose (UA) (Negative) Urine Ketones (Negative) Urine Blood (Negative) Urine Nitrite (Negative) Urine Bilirubin (Negative) Urine Urobilinogen (<2.0) mg/dL Ur Leukocyte Esterase (Negative) Urine RBC (0-5) /hpf Urine WBC (0-5) /hpf Ur Squamous Epith Cells (0-4) /hpf Urine Mucus (None) /hpf Blood Type A Positive Blood Type Recheck A Pos Bld Type Recheck Status No Antibody Screen NEGATIVE Spec Expiration Date 12/05/2021 - 232412/02/21 Range/Units 00:28 WBC (3.8-10.6) k/uL RBC (3.80-5.40) m/uL Hgb (11.4-16.0) gm/dL Hct (34.0-46.0) % MCV (80.0-100.0) fL MCH (25.0-35.0) pg MCHC (31.0-37.0) g/dL RDW (11.5-15.5) % Plt Count (150-450) k/uL MPV Neutrophils % % Lymphocytes % % Monocytes % % Eosinophils % % Basophils % % Neutrophils # (1.3-7.7) k/uL Lymphocytes # (1.0-4.8) k/uL Monocytes # (0-1.0) k/uL Eosinophils # (0-0.7) k/uL Basophils # (0-0.2) k/uL Sodium (137-145) mmol/L Potassium (3.5-5.1) mmol/L Chloride (98-107) mmol/L Carbon Dioxide (22-30) mmol/L Anion Gap mmol/L BUN (7-17) mg/dL Creatinine (0.52-1.04) mg/dL Est GFR (CKD-EPI)AfAm (>60 ml/min/1.73 sqM) Est GFR (CKD-EPI)NonAf (>60 ml/min/1.73 sqM) Glucose (74-99) mg/dL Calcium (8.4-10.2) mg/dL Total Bilirubin (0.2-1.3) mg/dL AST (14-36) U/L ALT (4-34) U/L Alkaline Phosphatase (38-126) U/L Total Protein (6.3-8.2) g/dL Albumin (3.5-5.0) g/dL HCG, Quant mIU/mL Urine Color Yellow Urine Appearance Clear (Clear) Urine pH 5.5 (5.0-8.0) Ur Specific Marshall 1.028 (1.001-1.035) Urine Protein Trace H (Negative) Urine Glucose (UA) Negative (Negative) Urine Ketones Negative (Negative) Urine Blood Moderate H (Negative) Urine Nitrite Negative (Negative) Urine Bilirubin Negative (Negative) Urine Urobilinogen 2.0 (<2.0) mg/dL Ur Leukocyte Esterase Negative (Negative) Urine RBC 6 H (0-5) /hpf Urine WBC 5 (0-5) /hpf Ur Squamous Epith Cells 2 (0-4) /hpf Urine Mucus Many H (None) /hpf Blood Type Blood Type Recheck Bld Type Recheck Status Antibody Screen Spec Expiration Date - Radiology Data Radiology results: report reviewed, image reviewed Disposition Clinical Impression: Threatened miscarriage, Vaginal bleeding Disposition: HOME SELF-CARE Condition: Good Instructions (If sedation given, give patient instructions): Threatened Miscarriage (ED) Additional Instructions: No headache, no fever or chills, no changes in vision or hearing, no sore throat or difficulty with speech, no neck pain, no chest pain or shortness of breath, no abdominal pain, no nausea or vomiting, no changes in urination or bowel movements, no numbness or tingling, no extremity pain, no skin rashes or lesions. Is patient prescribed a controlled substance at d/c from ED?: No Referrals: Leny Donahue MD [Primary Care Provider] - 1-2 days Time of Disposition: 01:54
[2021-12-02 00:31] VITALS: BP 128/81; PULSE 78
[2021-12-02 00:38] LABS: Basophils % (A) 0 %; Eosinophils # (A) 0.2 k/uL (0-0.7); Eosinophils % (A) 2 %; HCT 38.2 % (34.0-46.0); HGB 12.9 gm/dL (11.4-16.0); Lymphocytes # (A) 2.5 k/uL (1.0-4.8); Lymphocytes % (A) 31 %; MCH 29.8 pg (25.0-35.0); MCHC 33.9 g/dL (31.0-37.0); Mean Platelet Volume 8.1; Monocytes # (A) 0.4 k/uL (0-1.0); Monocytes % (A) 5 %; Neutrophils % (A) 60 %; Platelet Count 312 k/uL (150-450); RBC 4.34 m/uL (3.80-5.40); RDW 13.4 % (11.5-15.5); WBC 8.3 k/uL (3.8-10.6)
[2021-12-02 00:50] LABS: ALT 21 U/L (4-34); AST 24 U/L (14-36); African American GFR (CKD) >90 (>60 ml/min/1.73 sqM); Albumin 4.2 g/dL (3.5-5.0); Alkaline Phosphatase 47 U/L (38-126); Anion Gap 8 mmol/L; Blood Urea Nitrogen 11 mg/dL (7-17); Calcium 9.2 mg/dL (8.4-10.2); Carbon Dioxide 26 mmol/L (22-30); Chloride 104 mmol/L (98-107); Glucose 114 mg/dL (74-99); Non-African American GFR(CKD) >90 (>60 ml/min/1.73 sqM); Potassium 4.1 mmol/L (3.5-5.1); Sodium 138 mmol/L (137-145); Total Bilirubin 0.4 mg/dL (0.2-1.3); Total Protein 7.5 g/dL (6.3-8.2)
[2021-12-02 01:07] LABS: HCG,Quantitative Serum 4.3 mIU/mL
[2021-12-02 01:23] LABS: Appearance,Urine Clear (Clear); Bilirubin,Urine Negative (Negative); Blood,Urine Moderate (Negative); Color,Urine Yellow; Glucose,Urine (UA) Negative (Negative); Ketones,Urine Negative (Negative); Leukocyte Esterase,Urine Negative (Negative); Mucus,Urine Many /hpf; Nitrite,Urine Negative (Negative); PH, Urine 5.5 (5.0-8.0); Protein,Urine Trace (Negative); RBC,Urine 6 /hpf (0-5); Specific Gravity,Urine 1.028 (1.001-1.035); Squamous Epithelial Cell,Urine 2 /hpf (0-4); WBC,Urine 5 /hpf (0-5)
== END 2021-12-02 02:28 | disposition home or self-care (01) ==
LOC: EC 17:39
DX: O20.0 Threatened abortion (principal); Z3A.01 Less than 8 weeks gestation of pregnancy
CPT/HCPCS: 36415; 76801; 76817; 80053; 81001; 84702; 85025; 86850; 86900; 86901; 99284

== ENCOUNTER → 2022-03-28 | Day surgery (SDC) | payer OTHER ==
[2022-03-26 13:59] VITALS: BMI 35.6
[~2022-03-28] MED LIST: LACTATED RINGERS 1,000 ML IV SCH; LIDOCAINE 1% (10MG/ML) FOR IV START INTRADERMA PRN; PROPOFOL 10 MG/ML 20 ML VIAL IV ONE
--- NOTE | 2022-03-28 07:35 | P.GSHP ---
History of Present Illness H&P Date: 03/28/22 CHIEF COMPLAINT: Colon screen HISTORY OF PRESENT ILLNESS: The patient is a 31-year-old female who presents for colon screen. Lower endoscopy was offered for further evaluation and management. PAST MEDICAL HISTORY: Please see list. PAST SURGICAL HISTORY: Please see list. MEDICATIONS: Please see list. ALLERGIES: Please see list. SOCIAL HISTORY: No illicit drug use FAMILY HISTORY: No reports of Crohn disease or ulcerative colitis. REVIEW OF ORGAN SYSTEMS: CONSTITUTIONAL: No reports of fevers or chills. PHYSICAL EXAM: VITAL SIGNS: Stable GENERAL: Well-developed pleasant in no acute distress. HEENT: No scleral icterus. Extraocular movements grossly intact. Moist buccal mucosa. NECK: Supple without lymphadenopathy. CHEST: Unlabored respirations. Equal bilateral excursions. CARDIOVASCULAR: Regular rate and rhythm. Distal 2+ pulses. ABDOMEN: Soft, nontender, nondistended. MUSCULOSKELETAL: No clubbing, cyanosis, or edema. ASSESSMENT: 1. Colon screen. PLAN: 1. Recommend proceeding with a lower endoscopy Past Medical History Past Medical History: No Reported History Additional Past Medical History / Comment(s): BLOOD IN STOOL History of Any Multi-Drug Resistant Organisms: None Reported Past Surgical History: Appendectomy, Section, Orthopedic Surgery Additional Past Surgical History / Comment(s): RT BUNIONECTOMY Past Anesthesia/Blood Transfusion Reactions: No Reported Reaction Smoking Status: Never smoker - Past Family History Mother History Unknown: Yes Family Medical History: No Reported History Medications and Allergies Home Medications Medication Instructions Recorded Confirmed Type No Known Home Medications 03/26/22 03/26/22 History Allergies Allergy/AdvReac Type Severity Reaction Status Date / Time Cephalosporins Allergy Intermediate Rash/Hives Verified 03/26/22 13:45
[2022-03-28 08:31] VITALS: RESP 16; TEMP 97.6
--- NOTE | 2022-03-28 09:39 | P.PCN ---
Date of Procedure: 03/28/22 Description of Procedure: PREOPERATIVE DIAGNOSIS: Gastrointestinal bleeding with rectal bleeding POSTOPERATIVE DIAGNOSIS: History of gastrointestinal bleeding with rectal bleeding OPERATION: Colonoscopy to the cecum, ileocecal valve SURGEON: Brisa Mcfarland MD. ANESTHESIA: MAC. INDICATIONS: The patient is a 31-year-old female who presents with gastrointestinal bleeding and rectal bleeding. Benefits and risks were described and informed consent was obtained. DESCRIPTION OF PROCEDURE: The patient had undergone Miralax prep. The patient had been brought into the operating room and laid in the left lateral decubitus position. After adequate intravenous sedation, the rectum was examined with 2% lidocaine jelly. The rectal tone was within normal limits. An Olympus colonoscope was gently advanced to the cecum with clear visualization of the ileocecal valve. The prep was good. No sigmoid diverticulosis was encountered. No active colonic bleeding was found. No intraluminal masses were identified within the colon. No colonic polyps were found. No evidence of focal colitis was found. Retroflexion of the scope demonstrated grade 2 internal hemorrhoids without inflammation. The colon was desufflated. The patient had tolerated the procedure well. Withdrawal time was over 6 minutes. FINDINGS: Aronchick preparation quality scale 2 (1-5) Internal hemorrhoids, grade 2 without bleeding No thrombosed hemorrhoid identified. No arteriovenous malformations. No adenomatous polyps. No focal colitis. Highly redundant sigmoid colon requiring abdominal wall pressure RECOMMENDATIONS: 1. Recommend upper endoscopy for source of GI bleed Plan - Discharge Summary Discharge Rx Participant: No New Discharge Prescriptions: Continue No Known Home Medications Discharge Medication List No Known Home Medications 03/26/22 [History] Follow up Appointment(s)/Referral(s): Brisa Mcfarland MD [STAFF PHYSICIAN] - 04/17/22 Patient Instructions/Handouts: Colonoscopy (DC), Moderate Sedation (ED), *Surgery [facility] - (Anesthesia) Endoscopy Discharge Instructions Discharge Disposition: HOME SELF-CARE
[2022-03-28 09:51] VITALS: BP 107/57; PULSE 64
== END | disposition home or self-care (01) ==
LOC: ORWHC2ENDO 08:00
PROVIDERS: ATTEND Surgery Plastic and Reconstructive Surgery
DX: K57.31 Diverticulosis of large intestine without perforation or abscess with bleeding (principal); K64.1 Second degree hemorrhoids; K21.9 Gastro-esophageal reflux disease without esophagitis; Z90.49 Acquired absence of other specified parts of digestive tract; Z98.891 History of uterine scar from previous surgery; Z98.890 Other specified postprocedural states
CPT/HCPCS: 81025; 45378; J2704

== ENCOUNTER 2022-05-07 17:49 | Emergency (ER) | payer OTHER ==
[2022-05-07 18:48] VITALS: BP 139/92; RESP 16; TEMP 98.6
[2022-05-07 19:29] LABS: Basophils # (A) 0.1 k/uL (0-0.2); Basophils % (A) 1 %; Eosinophils # (A) 0.1 k/uL (0-0.7); Eosinophils % (A) 1 %; HCT 39.1 % (34.0-46.0); HGB 13.3 gm/dL (11.4-16.0); Lymphocytes # (A) 2.2 k/uL (1.0-4.8); Lymphocytes % (A) 22 %; MCHC 34.1 g/dL (31.0-37.0); MCV 88.1 fL (80.0-100.0); Mean Platelet Volume 7.9; Monocytes # (A) 0.4 k/uL (0-1.0); Monocytes % (A) 4 %; Neutrophils # (A) 7.3 k/uL (1.3-7.7); Neutrophils % (A) 71 %; Platelet Count 329 k/uL (150-450); RBC 4.44 m/uL (3.80-5.40); RDW 13.1 % (11.5-15.5); WBC 10.2 k/uL (3.8-10.6)
[2022-05-07 19:59] LABS: ALT 23 U/L (4-34); AST 26 U/L (14-36); African American GFR (CKD) >90 (>60 ml/min/1.73 sqM); Albumin 4.6 g/dL (3.5-5.0); Alkaline Phosphatase 58 U/L (38-126); Anion Gap 13 mmol/L; Blood Urea Nitrogen 15 mg/dL (7-17); Calcium 9.8 mg/dL (8.4-10.2); Carbon Dioxide 28 mmol/L (22-30); Chloride 98 mmol/L (98-107); Glucose 104 mg/dL (74-99); Non-African American GFR(CKD) >90 (>60 ml/min/1.73 sqM); Potassium 4.4 mmol/L (3.5-5.1); Sodium 139 mmol/L (137-145); Total Bilirubin 0.2 mg/dL (0.2-1.3); Total Protein 8.2 g/dL (6.3-8.2)
[2022-05-07] MEDS ORDERED: SODIUM CHLORIDE 0.9% 1,000 ML IV STA (20:46)
[2022-05-07] MEDS ORDERED: KETOROLAC 15 MG/ML 1 ML VIAL IVP STA (20:47)
[2022-05-07] MEDS ORDERED: ONDANSETRON 4 MG/2 ML VIAL IVP STA (20:57)
--- NOTE | 2022-05-07 21:02 | XR ---
EXAMINATION TYPE: XR chest 2V DATE OF EXAM: 05/07/2022 COMPARISON: 06/15/2014 HISTORY: Chest pain TECHNIQUE: FINDINGS: Heart and mediastinum are normal. Lungs are clear. Diaphragm is normal. Bony thorax appears normal. IMPRESSION: Normal chest. No change.
[2022-05-07 21:17] VITALS: PULSE 70
[2022-05-07 21:45] LABS: Basophils # (A) 0.1 k/uL (0-0.2); Basophils % (A) 1 %; Eosinophils # (A) 0.2 k/uL (0-0.7); Eosinophils % (A) 1 %; HCT 36.5 % (34.0-46.0); HGB 12.2 gm/dL (11.4-16.0); Lymphocytes # (A) 2.9 k/uL (1.0-4.8); Lymphocytes % (A) 27 %; MCH 29.3 pg (25.0-35.0); MCHC 33.5 g/dL (31.0-37.0); MCV 87.2 fL (80.0-100.0); Mean Platelet Volume 8.1; Monocytes # (A) 0.5 k/uL (0-1.0); Monocytes % (A) 5 %; Neutrophils # (A) 7.2 k/uL (1.3-7.7); Neutrophils % (A) 65 %; Platelet Count 298 k/uL (150-450); RBC 4.18 m/uL (3.80-5.40); RDW 12.6 % (11.5-15.5)
[2022-05-07 21:58] LABS: Amorphous Sediment,Urine Moderate /hpf; Appearance,Urine Cloudy (Clear); Bacteria,Urine Rare /hpf; Bilirubin,Urine Negative (Negative); Blood,Urine Negative (Negative); Color,Urine Light Yellow; Glucose,Urine (UA) Negative (Negative); Ketones,Urine Negative (Negative); Leukocyte Esterase,Urine Negative (Negative); Mucus,Urine Rare /hpf; Nitrite,Urine Negative (Negative); PH, Urine 7.5 (5.0-8.0); Protein,Urine Negative (Negative); RBC,Urine 1 /hpf (0-5); Urobilinogen,Urine <2.0 mg/dL (<2.0); WBC,Urine <1 /hpf (0-5)
[2022-05-07 21:59] LABS: INR 0.9 (<1.2); Partial Thromboplastin Time 24.9 sec (22.0-30.0); Prothrombin Time 10.2 sec (9.0-12.0)
[2022-05-07 22:04] LABS: ALT 21 U/L (4-34); AST 25 U/L (14-36); African American GFR (CKD) >90 (>60 ml/min/1.73 sqM); Albumin 4.2 g/dL (3.5-5.0); Anion Gap 10 mmol/L; Blood Urea Nitrogen 16 mg/dL (7-17); Carbon Dioxide 26 mmol/L (22-30); Glucose 97 mg/dL (74-99); Magnesium 1.8 mg/dL (1.6-2.3); Non-African American GFR(CKD) >90 (>60 ml/min/1.73 sqM); Sodium 137 mmol/L (137-145); Total Bilirubin 0.2 mg/dL (0.2-1.3); Total Protein 7.3 g/dL (6.3-8.2)
[2022-05-07 22:05] LABS: Alkaline Phosphatase 54 U/L (38-126); Calcium 9.3 mg/dL (8.4-10.2); Lipase 49 U/L (23-300)
[2022-05-07 22:12] LABS: Chloride 101 mmol/L (98-107)
--- NOTE | 2022-05-07 23:09 | ED ---
Chest Pain HPI - General Stated Complaint: Chest/back pain Time Seen by Provider: 05/07/22 19:23 Source: patient Mode of arrival: ambulatory Limitations: no limitations - History of Present Illness Initial Comments: Patient is a 32-year-old female who presents to the emergency department with a chief complaint of chest pain. Patient states the chest pain started one hour ago. Chest pain is in the lower middle of her chest with radiation to the back. Pain is constant. There is no jaw or arm involvement. Reports mild shortness of breath and nausea without vomiting. Denies sweating, dizziness, lightheadedness, palpitations. Patient states this happened to her about a month ago and lasted for about 8 hours. She was not evaluated at this time and states it went away on its own. Does mention that she supposed to have an upper scope done for possible gastritis/ulcer. Denies blood in stool. Denies chronic anti-inflammatory use. Denies personal and family history of cardiac disease. Denies past and present tobacco use. Reports social alcohol use. - Related Data Previous Rx's Medication Instructions Recorded Famotidine [Pepcid] 20 mg PO BID #28 tablet 05/07/22 Pantoprazole Sodium [Protonix] 40 mg PO DAILY #14 tab 05/07/22 Allergies Allergy/AdvReac Type Severity Reaction Status Date / Time Cephalosporins Allergy Intermediate Rash/Hives Verified 05/07/22 21:52 Review of Systems ROS Statement: Those systems with pertinent positive or pertinent negative responses have been documented in the HPI. ROS Other: All systems not noted in ROS Statement are negative. EKG Findings - EKG Comments: EKG Findings:: EKG taken at 19:02. Sinus rhythm, no ST segment or T-wave abnormalities. Ventricular rate 60. MD interval 146. QRS duration 95. QTc 395 Past Medical History Past Medical History: No Reported History Additional Past Medical History / Comment(s): BLOOD IN STOOL History of Any Multi-Drug Resistant Organisms: None Reported Past Surgical History: Appendectomy, Section, Orthopedic Surgery Additional Past Surgical History / Comment(s): RT BUNIONECTOMY Past Anesthesia/Blood Transfusion Reactions: No Reported Reaction Past Psychological History: No Psychological Hx Reported Smoking Status: Never smoker Past Alcohol Use History: Occasional Past Drug Use History: None Reported - Past Family History Mother History Unknown: Yes Family Medical History: No Reported History General Exam Limitations: no limitations General appearance: alert, in no apparent distress Head exam: Present: atraumatic, normocephalic, normal inspection Eye exam: Present: normal appearance, PERRL, EOMI. Absent: scleral icterus, conjunctival injection, periorbital swelling Neck exam: Present: normal inspection. Absent: tenderness, meningismus, lymphadenopathy Respiratory exam: Present: normal lung sounds bilaterally, chest wall tenderness (xiphoid process). Absent: respiratory distress, wheezes, rales, rhonchi, stridor Cardiovascular Exam: Present: regular rate, normal rhythm, normal heart sounds. Absent: systolic murmur, diastolic murmur, rubs, gallop, clicks GI/Abdominal exam: Present: soft, tenderness (epigastriic), normal bowel sounds. Absent: distended, guarding, rebound, rigid Neurological exam: Present: alert, oriented X3, CN II-XII intact Psychiatric exam: Present: normal affect, normal mood Skin exam: Present: warm, dry, intact, normal color. Absent: rash Course Vital Signs 05/07/22 05/07/22 18:46 21:12 Temperature 98.6 F Pulse Rate 81 Pulse Rate [ 70 Bilateral Apical] Respiratory 16 Rate Blood Pressure 139/92 O2 Sat by Pulse 98 Oximetry Chest Pain MDM - MDM This is a 32-year-old female who presents with chest pain. Patient well- appearing and in no apparent distress. Vitals stable. Pain is reproducible with palpation of the xiphoid process. There is epigastric tenderness. Patient denies history of pancreatitis. EKG shows sinus rhythm with no ST or T-wave abnormalities. Chest x-ray negative for acute process. Laboratory studies obtained. Troponin and d-dimer are within normal limits. Lipase within normal limits. Toradol given. On reevaluation patient states her pain has mostly subsided. Results discussed with patient. At this time there are no diagnostic studies to explain patient's pain. Patient has little risk factors for adverse cardiac outcomes. This does not appear to be cardiac in nature. Possibly related to gastritis or ulcer. Pt will need to follow up with GI specialist for scope. I'll discharge her with Protonix and Pepcid. She'll be referred to cardiology as well. Return parameters discussed. Patient verbalizes understanding and is agreeable to this plan. Dr. Gandhi is my attending. Disposition Clinical Impression: Epigastric pain, Chest pain, Nausea Disposition: HOME SELF-CARE Condition: Good Instructions (If sedation given, give patient instructions): Chest Pain (ED), GERD (Gastroesophageal Reflux Disease) (ED), Epigastric Pain (ED) Additional Instructions: Please take medication as directed. Follow-up with Dr. Mcfarland for possible scope as discussed. Follow up with cardiology if chest pain persists. Return to the emergency department experience new, concerning, or worsening symptoms. Prescriptions: Famotidine [Pepcid] 20 mg PO BID #28 tablet Pantoprazole Sodium [Protonix] 40 mg PO DAILY #14 tab Is patient prescribed a controlled substance at d/c from ED?: No Referrals: Lissy Hernandez DO [Primary Care Provider] - 1-2 days Butch La MD [STAFF PHYSICIAN] - 1-2 days Time of Disposition: 23:09
== END 2022-05-07 23:22 | disposition home or self-care (01) ==
LOC: EC 17:49
DX: R10.13 Epigastric pain (principal); Z88.1 Allergy status to other antibiotic agents
CPT/HCPCS: 36415; 93005; 85379; 80053; 83690; 83735; 84484; 85025; 85610; 85730; 81001; 71046; 99285; 96374; 96375; 96361; J2405; J1885

== ENCOUNTER 2023-09-08 09:01 | Emergency (ER) | payer OTHER ==
--- NOTE | 2023-09-08 09:10 | ED ---
General Adult HPI - General Stated complaint: right side chest pain Time Seen by Provider: 09/08/23 09:09 Source: patient, RN notes reviewed Mode of arrival: ambulatory Limitations: no limitations - History of Present Illness Initial comments: 33-year-old female presents emergency Department which went right-sided rib, chest pain. Patient states that she's had ongoing cough which she seen her primary care physician in urgent care for. Patient states the pain is new states it hurts when she puts her ultrasound but not when she lifts her arms. She denies any abdominal pain denies any pain with eating or drinking. Patient reports no fever. No prior cardiac or lung disease. - Related Data Previous Rx's Medication Instructions Recorded Famotidine [Pepcid] 20 mg PO BID #28 tablet 05/07/22 Pantoprazole Sodium [Protonix] 40 mg PO DAILY #14 tab 05/07/22 Ketorolac [Toradol] 10 mg PO Q8HR #15 tab 09/08/23 Allergies Allergy/AdvReac Type Severity Reaction Status Date / Time Cephalosporins Allergy Intermediate Rash/Hives Verified 09/08/23 09:28 Review of Systems ROS Statement: Those systems with pertinent positive or pertinent negative responses have been documented in the HPI. ROS Other: All systems not noted in ROS Statement are negative. Past Medical History Past Medical History: No Reported History Additional Past Medical History / Comment(s): BLOOD IN STOOL History of Any Multi-Drug Resistant Organisms: None Reported Past Surgical History: Appendectomy, Section, Orthopedic Surgery Additional Past Surgical History / Comment(s): RT BUNIONECTOMY Past Anesthesia/Blood Transfusion Reactions: No Reported Reaction Past Psychological History: No Psychological Hx Reported Smoking Status: Never smoker Past Alcohol Use History: Occasional Past Drug Use History: None Reported - Past Family History Mother History Unknown: Yes Family Medical History: No Reported History General Exam - General Exam Comments Initial Comments: Visual Physical Exam Vital signs reviewed General: Well-appearing, nontoxic, no acute distress. Head: Normocephalic, atraumatic Eyes: PERRLA, EOMI ENT: Airway patent Chest: Nonlabored breathing Skin: No visual rash, normal skin tone Neuro: Alert and oriented 3 Musculoskeletal: No gross abnormalities General appearance: alert, in no apparent distress Head exam: Present: atraumatic, normocephalic, normal inspection Eye exam: Present: normal appearance, PERRL, EOMI. Absent: scleral icterus, conjunctival injection, periorbital swelling Respiratory exam: Present: normal lung sounds bilaterally, chest wall tenderness. Absent: respiratory distress, wheezes, rales, rhonchi, stridor Cardiovascular Exam: Present: regular rate, normal rhythm, normal heart sounds. Absent: systolic murmur, diastolic murmur, rubs, gallop, clicks GI/Abdominal exam: Present: soft, normal bowel sounds. Absent: distended, tenderness, guarding, rebound, rigid Course Vital Signs 09/08/23 09/08/23 09:27 10:08 Temperature 98.1 F Pulse Rate 74 72 Respiratory 18 20 Rate Blood Pressure 121/75 106/58 O2 Sat by Pulse 96 Oximetry Medical Decision Making - Medical Decision Making I completed the quick note portion of this chart signed Efraín Pryor PA-C Was pt. sent in by a medical professional or institution (JOVANY Fernandez, STEEL LAYOUT WORKER, urgent care, hospital, or shelter...) When possible be specific @ -No Did you speak to anyone other than the patient for history (EMS, parent, family, police, friend...)? What history was obtained from this source @ -No Did you review nursing and triage notes (agree or disagree)? Why? @ -I reviewed and agree with nursing and triage notes Were old charts reviewed (outside hosp., previous admission, EMS record, old EKG, old radiological studies, urgent care reports/EKG's, shelter records)? Report findings @ -No old charts were reviewed Differential Diagnosis (chest pain, altered mental status, abdominal pain women, abdominal pain men, vaginal bleeding, weakness, fever, dyspnea, syncope, headache, dizziness, GI bleed, back pain, seizure, CVA, palpatations, mental health, musculoskeletal)? @ -Costochondritis, rib fracture, pneumothorax EKG interpreted by me (3pts min.). @ -None X-rays interpreted by me (1pt min.). @ -Chest x-ray shows no acute process CT interpreted by me (1pt min.). @ -None done U/S interpreted by me (1pt. min.). @ -None done What testing was considered but not performed or refused? (CT, X-rays, U/S, labs)? Why? @ -None What meds were considered but not given or refused? Why? @ -None Did you discuss the management of the patient with other professionals (professionals i.e. , PA, STEEL LAYOUT WORKER, lab, RT, psych nurse, criminal justice social worker, law office receptionist, teacher, admissions officer, case checker)? Give summary @ -No Was smoking cessation discussed for >3mins.? @ -No Was critical care preformed (if so, how long)? @ -No Were there social determinants of health that impacted care today? How? (Homelessness, low income, unemployed, alcoholism, drug addiction, transportat ion, low edu. Level, literacy, decrease access to med. care, alf, rehab)? @ -No Was there de-escalation of care discussed even if they declined (Discuss DNR or withdrawal of care, Hospice)? DNR status @ -No What co-morbidities impacted this encounter? (DM, HTN, Smoking, COPD, CAD, Cancer, CVA, ARF, Chemo, Hep., AIDS, mental health diagnosis, sleep apnea, morbid obesity)? @ -None Was patient admitted / discharged? Hospital course, mention meds given and route, prescriptions, significant lab abnormalities, going to OR and other pertinent info. @ -Discharge X-ray is unremarkable., Patient has rib tenderness, chest wall tenderness while at the from her cough. She was discharged with analgesics return parameters discussed. Undiagnosed new problem with uncertain prognosis? @ -No Drug Therapy requiring intensive monitoring for toxicity (Heparin, Nitro, Insulin, Cardizem)? @ -No Were any procedures done? @ -No Diagnosis/symptom? @ -Chest wall pain Acute, or Chronic, or Acute on Chronic? @ -Acute Uncomplicated (without systemic symptoms) or Complicated (systemic symptoms)? @ -Uncomplicated Side effects of treatment? @ -No Exacerbation, Progression, or Severe Exacerbation? @ -No Poses a threat to life or bodily function? How? (Chest pain, [place], [place], pneumonia, PE, COPD, DKA, ARF, appy, cholecystitis, CVA, Diverticulitis, Homicidal, Suicidal, threat to staff... and all critical care pts) @ -No Disposition Clinical Impression: Chest wall pain Disposition: HOME SELF-CARE Condition: Stable Instructions (If sedation given, give patient instructions): Chest Pain (ED) Additional Instructions: Please return to the Emergency Department if symptoms worsen or any other concerns. Prescriptions: Ketorolac [Toradol] 10 mg PO Q8HR #15 tab Is patient prescribed a controlled substance at d/c from ED?: No Referrals: Leny Donahue MD [Primary Care Provider] - 1-2 days Time of Disposition: 09:57
--- NOTE | 2023-09-08 09:46 | XR ---
EXAMINATION TYPE: XR chest 2V DATE OF EXAM: 09/08/2023 COMPARISON: 05/07/2022 HISTORY: 33 year-old female right-sided chest pain TECHNIQUE: PA and lateral views FINDINGS: The cardiomediastinal silhouette, aorta, and pulmonary vasculature are within normal limits. Lungs an d pleural spaces are clear. IMPRESSION: No acute cardiopulmonary process.
[2023-09-08 09:49] VITALS: TEMP 98.1
[2023-09-08] MEDS ORDERED: ACET/COD 300 MG/30 MG STARTER PACK 6 TAB BTL PO STA (09:56)
[2023-09-08 10:12] VITALS: BP 106/58; PULSE 72; RESP 20
== END 2023-09-08 10:09 | disposition home or self-care (01) ==
LOC: EC 09:01
DX: R07.89 Other chest pain (principal)
CPT/HCPCS: 71046; 93005; 99284

== ENCOUNTER 2023-10-12 07:25 | Observation (INO) | payer OTHER ==
[2023-10-12] MEDS: SODIUM CHLORIDE 0.9% 1,000 ML IV STA (07:54)
[2023-10-12] MEDS: KETOROLAC 15 MG/ML 1 ML VIAL IVP STA (07:55)
[2023-10-12 08:12] LABS: Appearance,Urine Clear (Clear); Bilirubin,Urine Negative (Negative); Blood,Urine Negative (Negative); Color,Urine Light Yellow; Glucose,Urine (UA) Negative (Negative); Ketones,Urine Negative (Negative); Leukocyte Esterase,Urine Negative (Negative); Nitrite,Urine Negative (Negative); PH, Urine 5.5 (5.0-8.0); Protein,Urine Negative (Negative); Specific Gravity,Urine 1.032 (1.001-1.035); Urobilinogen,Urine <2.0 mg/dL (<2.0)
[2023-10-12 08:15] LABS: ALT 21 U/L (4-34); AST 21 U/L (14-36); African American GFR (CKD) >90 (>60 ml/min/1.73 sqM); Albumin 3.9 g/dL (3.5-5.0); Alkaline Phosphatase 58 U/L (38-126); Anion Gap 6 mmol/L; Blood Urea Nitrogen 22 mg/dL (7-17); Calcium 9.2 mg/dL (8.4-10.2); Carbon Dioxide 23 mmol/L (22-30); Chloride 110 mmol/L (98-107); Glucose 111 mg/dL (74-99); Lipase 55 U/L (23-300); Non-African American GFR(CKD) >90 (>60 ml/min/1.73 sqM); Potassium 3.9 mmol/L (3.5-5.1); Sodium 139 mmol/L (137-145); Total Bilirubin 0.4 mg/dL (0.2-1.3); Total Protein 7.2 g/dL (6.3-8.2)
--- NOTE | 2023-10-12 08:18 | ED ---
Abdominal Pain HPI - General Chief Complaint: Abdominal Pain Stated Complaint: Abd/Back Pain Time Seen by Provider: 10/12/23 07:31 Source: patient, RN notes reviewed Mode of arrival: ambulatory Limitations: no limitations - History of Present Illness Initial Comments: 33-year-old female presents emergency department with chief complaint of right- sided abdominal pain, rib pain. Patient states she has been having rib pain issues in which she was seen approximately 1 month ago for similar complaints. She states that resolved not she has pain in her abdomen and rib. She denies any trauma denies any significant cough congestion. She states it does hurt to move. Patient denies any dysuria hematuria she states that she does get a large amount of reflux issues, has some discomfort when she eats. - Related Data Previous Rx's Medication Instructions Recorded Famotidine [Pepcid] 20 mg PO BID #28 tablet 05/07/22 Pantoprazole Sodium [Protonix] 40 mg PO DAILY #14 tab 05/07/22 Ketorolac [Toradol] 10 mg PO Q8HR #15 tab 09/08/23 Allergies Allergy/AdvReac Type Severity Reaction Status Date / Time Cephalosporins Allergy Intermediate Rash/Hives Verified 10/12/23 07:34 Review of Systems ROS Statement: Those systems with pertinent positive or pertinent negative responses have been documented in the HPI. ROS Other: All systems not noted in ROS Statement are negative. Past Medical History Past Medical History: No Reported History Additional Past Medical History / Comment(s): BLOOD IN STOOL History of Any Multi-Drug Resistant Organisms: None Reported Past Surgical History: Appendectomy, Section, Orthopedic Surgery Additional Past Surgical History / Comment(s): RT BUNIONECTOMY Past Anesthesia/Blood Transfusion Reactions: No Reported Reaction Past Psychological History: No Psychological Hx Reported Smoking Status: Never smoker Past Alcohol Use History: Occasional Past Drug Use History: None Reported - Past Family History Mother History Unknown: Yes Family Medical History: No Reported History General Exam Limitations: no limitations General appearance: alert, in no apparent distress Head exam: Present: atraumatic, normocephalic, normal inspection Eye exam: Present: normal appearance, PERRL, EOMI. Absent: scleral icterus, conjunctival injection, periorbital swelling ENT exam: Present: normal exam, normal oropharynx, mucous membranes moist Neck exam: Present: normal inspection, full ROM. Absent: tenderness, meningismus, lymphadenopathy Respiratory exam: Present: normal lung sounds bilaterally, chest wall tenderness. Absent: respiratory distress, wheezes, rales, rhonchi, stridor Cardiovascular Exam: Present: regular rate, normal rhythm, normal heart sounds. Absent: systolic murmur, diastolic murmur, rubs, gallop, clicks GI/Abdominal exam: Present: soft, tenderness, normal bowel sounds. Absent: distended, guarding, rebound, rigid Back exam: Absent: CVA tenderness (R), CVA tenderness (L) Course Vital Signs 10/12/23 07:30 Temperature 98.6 F Pulse Rate 93 Respiratory 22 Rate Blood Pressure 123/77 O2 Sat by Pulse 98 Oximetry Medical Decision Making - Medical Decision Making Was pt. sent in by a medical professional or institution (JOVANY Fernandez, CLAIMS SPECIALIST, urgent care, hospital, or usp...) When possible be specific @ -[No] Did you speak to anyone other than the patient for history (EMS, parent, family, police, friend...)? What history was obtained from this source @ -[No] Did you review nursing and triage notes (agree or disagree)? Why? @ -[I reviewed and agree with nursing and triage notes] Were old charts reviewed (outside hosp., previous admission, EMS record, old EKG, old radiological studies, urgent care reports/EKG's, usp records)? Report findings @ -[Reviewed prior charts, imaging Differential Diagnosis (chest pain, altered mental status, abdominal pain women, abdominal pain men, vaginal bleeding, weakness, fever, dyspnea, syncope, headache, dizziness, GI bleed, back pain, seizure, CVA, palpatations, mental health, musculoskeletal)? @ -[Differential Abdominal Pain Women: Appendicitis, Cholecystitis, diverticulosis, ischemic bowel, pancreatitis, hepatitis, UTI, gastroenteritis, AAA, incarcerated hernia, bowel obstruction, constipation, inflammatory bowel, hepatitis, peptic ulcer disease, splenic infarction, perforated viscus, vulvitis, ovarian torsion, PID, kidney stone, placenta abruption, this is not meant to be an all-inclusive list EKG interpreted by me (3pts min.). @ -[None X-rays interpreted by me (1pt min.). @ -[None done] CT interpreted by me (1pt min.). @ -[None done] U/S interpreted by me (1pt. min.). @ -Ultrasound right upper quadrant showing evidence of number about gallbladder neck stone, normal common bile duct, no pericholecystic fluid What testing was considered but not performed or refused? (CT, X-rays, U/S, labs)? Why? @ -[None] What meds were considered but not given or refused? Why? @ -[None] Did you discuss the management of the patient with other professionals (professionals i.e. , PA, CLAIMS SPECIALIST, lab, RT, psych nurse, social director, pull up hand, teacher, alumni relations officer, manager of case management)? Give summary @ -[Dr Rubalcava for admission. Patient was evaluated Emergency Department by surgeon. Was smoking cessation discussed for >3mins.? @ -[No] Was critical care preformed (if so, how long)? @ -[No] Were there social determinants of health that impacted care today? How? (Homelessness, low income, unemployed, alcoholism, drug addiction, transportation, low edu. Level, literacy, decrease access to med. care, snf, rehab)? @ -[No] Was there de-escalation of care discussed even if they declined (Discuss DNR or withdrawal of care, Hospice)? DNR status @ -[No] What co-morbidities impacted this encounter? (DM, HTN, Smoking, COPD, CAD, Cancer, CVA, ARF, Chemo, Hep., AIDS, mental health diagnosis, sleep apnea, morbid obesity)? @ -[None] Was patient admitted / discharged? Hospital course, mention meds given and route, prescriptions, significant lab abnormalities, going to OR and other pertinent info. @ -[Admit the patient is found to have cholelithiasis, nonmobile stone within the gallbladder neck patient is symptomatic. Patient admitted for surgical intervention. Undiagnosed new problem with uncertain prognosis? @ -[No] Drug Therapy requiring intensive monitoring for toxicity (Heparin, Nitro, Insulin, Cardizem)? @ -[No] Were any procedures done? @ -[No] Diagnosis/symptom? @ -[Cholelithiasis Acute, or Chronic, or Acute on Chronic? @ -[Acute Uncomplicated (without systemic symptoms) or Complicated (systemic symptoms)? @ -[Uncomplicated Side effects of treatment? @ -[No] Exacerbation, Progression, or Severe Exacerbation? @ -[No] Poses a threat to life or bodily function? How? (Chest pain, [place], [place], pneumonia, PE, COPD, DKA, ARF, appy, cholecystitis, CVA, Diverticulitis, Homicidal, Suicidal, threat to staff... and all critical care pts) @ -[No] - Lab Data Result diagrams: 10/12/23 07:54 10/12/23 07:54 Lab Results 10/12/23 10/12/23 10/12/23 Range/Units 07:54 07:54 07:54 WBC 10.7 H (3.8-10.6) k/uL RBC 4.69 (3.80-5.40) m/uL Hgb 13.8 (11.4-16.0) gm/dL Hct 40.5 (34.0-46.0) % MCV 86.2 (80.0-100.0) fL MCH 29.3 (25.0-35.0) pg MCHC 34.0 (31.0-37.0) g/dL RDW 12.8 (11.5-15.5) % Plt Count 269 (150-450) k/uL MPV 8.2 Neutrophils % 67 % Lymphocytes % 26 % Monocytes % 5 % Eosinophils % 1 % Basophils % 0 % Neutrophils # 7.1 (1.3-7.7) k/uL Lymphocytes # 2.8 (1.0-4.8) k/uL Monocytes # 0.5 (0-1.0) k/uL Eosinophils # 0.2 (0-0.7) k/uL Basophils # 0.1 (0-0.2) k/uL Sodium 139 (137-145) mmol/L Potassium 3.9 (3.5-5.1) mmol/L Chloride 110 H (98-107) mmol/L Carbon Dioxide 23 (22-30) mmol/L Anion Gap 6 mmol/L BUN 22 H (7-17) mg/dL Creatinine 0.72 (0.52-1.04) mg/dL Est GFR (CKD-EPI)AfAm >90 (>60 ml/min/1.73 sqM) Est GFR (CKD-EPI)NonAf >90 (>60 ml/min/1.73 sqM) Glucose 111 H (74-99) mg/dL Plasma Lactic Acid Marciano (0.7-2.0) mmol/L Calcium 9.2 (8.4-10.2) mg/dL Total Bilirubin 0.4 (0.2-1.3) mg/dL AST 21 (14-36) U/L ALT 21 (4-34) U/L Alkaline Phosphatase 58 (38-126) U/L Total Protein 7.2 (6.3-8.2) g/dL Albumin 3.9 (3.5-5.0) g/dL Lipase 55 (23-300) U/L Urine Color Light Yellow Urine Appearance Clear (Clear) Urine pH 5.5 (5.0-8.0) Ur Specific [place] 1.032 (1.001-1.035) Urine Protein Negative (Negative) Urine Glucose (UA) Negative (Negative) Urine Ketones Negative (Negative) Urine Blood Negative (Negative) Urine Nitrite Negative (Negative) Urine Bilirubin Negative (Negative) Urine Urobilinogen <2.0 (<2.0) mg/dL Ur Leukocyte Esterase Negative (Negative) 10/12/23 Range/Units 07:54 WBC (3.8-10.6) k/uL RBC (3.80-5.40) m/uL Hgb (11.4-16.0) gm/dL Hct (34.0-46.0) % MCV (80.0-100.0) fL MCH (25.0-35.0) pg MCHC (31.0-37.0) g/dL RDW (11.5-15.5) % Plt Count (150-450) k/uL MPV Neutrophils % % Lymphocytes % % Monocytes % % Eosinophils % % Basophils % % Neutrophils # (1.3-7.7) k/uL Lymphocytes # (1.0-4.8) k/uL Monocytes # (0-1.0) k/uL Eosinophils # (0-0.7) k/uL Basophils # (0-0.2) k/uL Sodium (137-145) mmol/L Potassium (3.5-5.1) mmol/L Chloride (98-107) mmol/L Carbon Dioxide (22-30) mmol/L Anion Gap mmol/L BUN (7-17) mg/dL Creatinine (0.52-1.04) mg/dL Est GFR (CKD-EPI)AfAm (>60 ml/min/1.73 sqM) Est GFR (CKD-EPI)NonAf (>60 ml/min/1.73 sqM) Glucose (74-99) mg/dL Plasma Lactic Acid Marciano 0.7 (0.7-2.0) mmol/L Calcium (8.4-10.2) mg/dL Total Bilirubin (0.2-1.3) mg/dL AST (14-36) U/L ALT (4-34) U/L Alkaline Phosphatase (38-126) U/L Total Protein (6.3-8.2) g/dL Albumin (3.5-5.0) g/dL Lipase (23-300) U/L Urine Color Urine Appearance (Clear) Urine pH (5.0-8.0) Ur Specific [place] (1.001-1.035) Urine Protein (Negative) Urine Glucose (UA) (Negative) Urine Ketones (Negative) Urine Blood (Negative) Urine Nitrite (Negative) Urine Bilirubin (Negative) Urine Urobilinogen (<2.0) mg/dL Ur Leukocyte Esterase (Negative) Disposition Clinical Impression: Cholecystitis with cholelithiasis Disposition: ADMITTED IP TO THIS HOSP Condition: Fair Referrals: Leny Donahue MD [Primary Care Provider] - 1-2 days Time of Disposition: 08:48
[2023-10-12 08:22] LABS: Basophils # (A) 0.1 k/uL (0-0.2); Basophils % (A) 0 %; Eosinophils # (A) 0.2 k/uL (0-0.7); Eosinophils % (A) 1 %; HCT 40.5 % (34.0-46.0); HGB 13.8 gm/dL (11.4-16.0); Lymphocytes # (A) 2.8 k/uL (1.0-4.8); Lymphocytes % (A) 26 %; MCH 29.3 pg (25.0-35.0); MCV 86.2 fL (80.0-100.0); Mean Platelet Volume 8.2; Monocytes # (A) 0.5 k/uL (0-1.0); Monocytes % (A) 5 %; Neutrophils # (A) 7.1 k/uL (1.3-7.7); Neutrophils % (A) 67 %; Platelet Count 269 k/uL (150-450); RBC 4.69 m/uL (3.80-5.40); RDW 12.8 % (11.5-15.5); WBC 10.7 k/uL (3.8-10.6)
[2023-10-12] MEDS: ONDANSETRON 4 MG/2 ML VIAL IVP STA (08:28)
[2023-10-12] MEDS: HYDROmorphone 0.5 MG/0.5 ML SYRINGE IVP STA (08:29)
--- NOTE | 2023-10-12 08:32 | US ---
EXAMINATION TYPE: US gallbladder DATE OF EXAM: 10/12/2023 COMPARISON: CT - 05/13/2016 CLINICAL INDICATION: Female, 33 years old with history of pain; RUQ/Epigastric pain x 1 month with na usea - worsening over last few days. Hx Appendectomy; Patient denies any other signs or symptoms or r elevant history TECHNIQUE: Multiple sonographic images of the right upper quadrant are obtained. FINDINGS: EXAM MEASUREMENTS: Liver Length: 15.2 cm Gallbladder Wall: 0.3 cm CBD: 0.6 cm Right Kidney: 10.5 x 4.8 x 4.6 cm Pancreas: wnl Liver: wnl Gallbladder: nomobile stone in gallbladder neck Evidence for sonographic Zambrano's sign: Yes CBD: wnl Right Kidney: wnl IMPRESSION: nonmobile stone in Gallbladder neck and positive zambrano's sign suggestive of acute cholecystitis
[2023-10-12] MEDS ORDERED: NALOXONE 0.4 MG/ML 1 ML VIAL IV PRN (09:02)
[2023-10-12] MEDS: PIPERACILLIN-TAZOBACTAM 3.375 GM in SODIUM CHLORIDE 0.9% 100 ML IVPB SCH (09:07)
[2023-10-12] MEDS: SODIUM CHLORIDE 0.9% 1,000 ML IV SCH (09:09)
--- NOTE | 2023-10-12 09:15 | P.GSHP ---
History of Present Illness H&P Date: 10/12/23 Chief Complaint: Epigastric pain Upper abdominal pain intermittent for a month and now persistent for 2 days. Had nausea and chills - Constitutional Constitutional: Reports chills - EENT Eyes: denies blurred vision Ears: deny: decreased hearing - Cardiovascular Cardiovascular: Denies chest pain, Denies rapid heart beat - Respiratory Respiratory: Denies dyspnea - Gastrointestinal Gastrointestinal: Reports abdominal pain, Reports BRBPR - Genitourinary (Female) Genitourinary: Denies hematuria - Musculoskeletal Musculoskeletal: Denies limitation of motion - Neurological Neurological: Denies seizures - Psychiatric Psychiatric: Denies depression - Hematologic/Lymphatic Hematologic/Lymphatic: Denies easy bruising (Reports allergy to cephalosporin but it occurred at age 20 and may have been rash due to anxiety. She tolerated PCN) Past Medical History Past Medical History: No Reported History Additional Past Medical History / Comment(s): BLOOD IN STOOL History of Any Multi-Drug Resistant Organisms: None Reported Past Surgical History: Appendectomy, Section, Orthopedic Surgery Additional Past Surgical History / Comment(s): RT BUNIONECTOMY Past Anesthesia/Blood Transfusion Reactions: No Reported Reaction Past Psychological History: No Psychological Hx Reported Smoking Status: Never smoker Past Alcohol Use History: Occasional Past Drug Use History: None Reported - Past Family History Mother History Unknown: Yes Family Medical History: No Reported History Medications and Allergies Home Medications Medication Instructions Recorded Confirmed Type Famotidine [Pepcid] 20 mg PO BID #28 tablet 05/07/22 Rx Pantoprazole Sodium [Protonix] 40 mg PO DAILY #14 tab 05/07/22 Rx Ketorolac [Toradol] 10 mg PO Q8HR #15 tab 09/08/23 Rx Allergies Allergy/AdvReac Type Severity Reaction Status Date / Time Cephalosporins Allergy Intermediate Rash/Hives Verified 10/12/23 07:34 Surgical - Exam Vital Signs Temp Pulse Resp BP Pulse Ox 98.6 F 93 22 123/77 98 10/12/23 07:30 10/12/23 07:30 10/12/23 07:30 10/12/23 07:30 10/12/23 07:30 Patient Seen Date: 10/12/23 Patient Seen Time: 09:12 - General well developed, moderate distress - Eyes no icteric - Respiratory clear to auscultation - Cardiovascular Rhythm: regular Heart Sounds: normal: S1, S2 Abnormal Heart Sounds: no systolic murmur - Abdomen Abdomen: tender (RUQ) - Integumentary other (tattoos) - Neurologic other (no deficits) - Psychiatric speech is normal Results - Labs 10/12/23 07:54 10/12/23 07:54 Abnormal Lab Results - Last 24 Hours (Table) 10/12/23 10/12/23 Range/Units 07:54 07:54 WBC 10.7 H (3.8-10.6) k/uL Chloride 110 H (98-107) mmol/L BUN 22 H (7-17) mg/dL Glucose 111 H (74-99) mg/dL Diabetes panel 10/12/23 Range/Units 07:54 Sodium 139 (137-145) mmol/L Potassium 3.9 (3.5-5.1) mmol/L Chloride 110 H (98-107) mmol/L Carbon Dioxide 23 (22-30) mmol/L BUN 22 H (7-17) mg/dL Creatinine 0.72 (0.52-1.04) mg/dL Glucose 111 H (74-99) mg/dL Calcium 9.2 (8.4-10.2) mg/dL AST 21 (14-36) U/L ALT 21 (4-34) U/L Alkaline Phosphatase 58 (38-126) U/L Total Protein 7.2 (6.3-8.2) g/dL Albumin 3.9 (3.5-5.0) g/dL Calcium panel 10/12/23 Range/Units 07:54 Calcium 9.2 (8.4-10.2) mg/dL Albumin 3.9 (3.5-5.0) g/dL Pituitary panel 10/12/23 Range/Units 07:54 Sodium 139 (137-145) mmol/L Potassium 3.9 (3.5-5.1) mmol/L Chloride 110 H (98-107) mmol/L Carbon Dioxide 23 (22-30) mmol/L BUN 22 H (7-17) mg/dL Creatinine 0.72 (0.52-1.04) mg/dL Glucose 111 H (74-99) mg/dL Calcium 9.2 (8.4-10.2) mg/dL Adrenal panel 10/12/23 Range/Units 07:54 Sodium 139 (137-145) mmol/L Potassium 3.9 (3.5-5.1) mmol/L Chloride 110 H (98-107) mmol/L Carbon Dioxide 23 (22-30) mmol/L BUN 22 H (7-17) mg/dL Creatinine 0.72 (0.52-1.04) mg/dL Glucose 111 H (74-99) mg/dL Calcium 9.2 (8.4-10.2) mg/dL Total Bilirubin 0.4 (0.2-1.3) mg/dL AST 21 (14-36) U/L ALT 21 (4-34) U/L Alkaline Phosphatase 58 (38-126) U/L Total Protein 7.2 (6.3-8.2) g/dL Albumin 3.9 (3.5-5.0) g/dL Assessment and Plan Assessment: Acute cholecystitis with cholelithiasis. Admit, IV antibiotics and lap evelyn (1) Cholecystitis with cholelithiasis Current Visit: Yes Status: Acute Code(s): K80.10 - CALCULUS OF GALLBLADDER W CHRONIC CHOLECYST W/O OBSTRUCTION SNOMED Code(s): 352037334 Time with Patient: Greater than 30
[2023-10-12] MEDS: HYDROmorphone 0.5 MG/0.5 ML SYRINGE IVP PRN (09:52)
[2023-10-12] MEDS: SODIUM CHLORIDE 0.9% 1,000 ML IV ONE (11:30)
[2023-10-12] MEDS: DEXAMETHASONE SOD PHOSPHATE 4 MG/ML 1 ML VIAL IVP ONE (11:48)
[2023-10-12] MEDS: ONDANSETRON 4 MG/2 ML VIAL IVP ONE (11:57)
[2023-10-12] MEDS ORDERED: MIDAZOLAM 2 MG/2 ML VIAL ONE (14:49)
[2023-10-12] MEDS ORDERED: LIDOCAINE 1% INJ 10MG/ML (20 ML MDV) ONE (14:49)
[2023-10-12] MEDS ORDERED: GLYCOPYRROLATE 0.2 MG/ML 2 ML VIAL ONE (14:49)
[2023-10-12] MEDS ORDERED: NEOSTIGMINE 1 MG/ML 10 ML VIAL ONE (14:49)
[2023-10-12] MEDS ORDERED: HYDROmorphone (PF) 1 MG/ML ONE (14:49)
[2023-10-12] MEDS ORDERED: PROPOFOL 10 MG/ML 20 ML VIAL IV ONE (14:49)
[2023-10-12] MEDS ORDERED: ROCURONIUM 10 MG/ML (5 ML VIAL) IV ONE (14:49)
[2023-10-12] MEDS ORDERED: SUCCINYLCHOLINE CHLORIDE 200 MG/10 ML VIAL IV ONE (14:49)
[2023-10-12] MEDS ORDERED: fentaNYL (PF) 50 MCG/ML 2 ML AMP ONE (14:49)
[2023-10-12] MEDS: LACTATED RINGERS 1,000 ML IV ONE (15:50)
[2023-10-12] MEDS: BUPIVACAINE (PF) 0.5% 30 ML VIAL SQ ONE (16:41)
[2023-10-12] MEDS: LIDOCAINE 1% INJ 10MG/ML (20 ML MDV) SQ ONE (16:41)
--- NOTE | 2023-10-12 17:12 | P.OP ---
Date of Procedure: 10/12/23 Preoperative Diagnosis: Acute cholecystitis with cholelithiasis Postoperative Diagnosis: same Procedure(s) Performed: Laparoscopic cholecystectomy Anesthesia: FLAVIO Surgeon: Baldev Rubalcava Estimated Blood Loss (ml): 5 Pathology: other (gallbladder) Condition: stable Disposition: floor Indications for Procedure: The patient was admitted with intractable pain and cholecystitis. Surgery was recommended. The procedure was reviewed including the need to convert to open surgery and consent was provided. Operative Findings: After the patient was given an adequate general endotracheal anesthetic, she was prepped and draped in a sterile fashion. An open right subcostal port insertion was made. Pneumoperitoneum was established. A periumbilical and 2 subcostal 5 mm ports were placed under direct laparoscopic vision. The gallbladder was tensely distended and it was decompressed with a trocar. The gallbladder was dissected off the liver in a fundus to infundibulum direction. The cystic duct and artery were individually dissected as the only structures attached to the gallbladder. The duct and artery were individually clipped and divided. The gallbladder was removed with the endocatch. The gallbladder bed was examined and there was no bleeding or bile leakage. The laparoscopic equipment was removed and the pneumoperitoneum was decompressed. The fascial layers of the open port insertion were individually closed with 0 Vicryl. The skin was closed with a subcuticular 3-0 Vicryl. Skin glue was applied. The patient tolerated the procedure well and was taken to PACU in satisfactory condition.
[2023-10-12] MEDS: HYDROmorphone 0.5 MG/0.5 ML SYRINGE IVP ONE (17:59)
[2023-10-12] MEDS: ONDANSETRON 4 MG/2 ML VIAL IVP PRN (18:49)
[2023-10-12] MEDS: ENOXAPARIN 40 MG/0.4 ML SYRINGE SQ SCH (19:55)
[2023-10-13] MEDS ORDERED: HYDROmorphone 0.5 MG/0.5 ML SYRINGE IVP PRN (07:00)
--- NOTE | 2023-10-13 11:33 | P.PN ---
Progress Note - Text Progress Note Date: 10/13/23 Patient has complaints of pain and nausea. She is status post laparoscopic cholecystectomy. On exam vital signs appear stable. Abdomen is soft. Patient will be discharged home tomorrow.
--- NOTE | 2023-10-14 00:04 | CONS ---
CONSULTATION REASON FOR CONSULTATION: Advice regarding abnormal labs and other medical issues requested by Surgery. HISTORY OF PRESENT ILLNESS: This is a 33-year-old woman with a past medical history of no significant medical issues, admitted with acute cholecystitis and cholelithiasis. The patient underwent laparoscopic cholecystectomy. There is no significant fever, rigors, chills, headaches, chest pain, palpitation at this time. PAST MEDICAL HISTORY: Appendectomy, section, orthopedic surgery, bunionectomy. HOME MEDICATIONS: None. ALLERGIES: Cephalosporins. FAMILY HISTORY: No history of heart disease or strokes in the family. SOCIAL HISTORY: Occasional alcohol. REVIEW OF SYSTEMS: Fourteen-point review is negative except as mentioned earlier. PHYSICAL EXAM: VITAL SIGNS: Pulse 72, blood pressure 90/58, and respirations 17. CHEST: No rhonchi. No crackles. ABDOMEN: Soft, status post surgery. LEGS: No edema. NERVOUS SYSTEM: Nonfocal. LABORATORY DATA: Glucose 111. WBC 10.7. ASSESSMENT: 1. Acute cholecystitis with cholelithiasis, status post laparoscopic cholecystectomy. 2. Elevated WBC, present on admission. 3. Elevated random glucose. 4. Appendectomy. RECOMMENDATIONS AND DISCUSSION: This is a 33-year-old woman who presented with multiple medical issues. At this time, we will monitor the patient closely. Incentive spirometry. DVT prophylaxis. The patient is on Lovenox. I would recommend repeat labs. Broad-spectrum IV antibiotics. Cautious IV fluids. Closely monitor with Surgery. Further recommendations to follow. MMODL / IJN: [id number] /
[2023-10-14 02:58] VITALS: PULSE 71
[2023-10-14 08:31] LABS: Basophils # (A) 0.04 X 10*3/uL (0.00-0.10); Basophils % (A) 0.5 %; Eosinophils % (A) 1.2 %; HCT 33.2 % (37.2-46.3); Lymphocytes # (A) 2.53 X 10*3/uL (0.90-5.00); Lymphocytes % (A) 30.9 %; MCH 28.8 pg (27.0-32.0); MCHC 33.1 g/dL (32.0-37.0); MCV 86.9 FL (80.0-97.0); Mean Platelet Volume 10.7 FL (9.5-12.2); Monocytes # (A) 0.58 X 10*3/uL (0.20-1.00); Monocytes % (A) 7.1 %; NRBC Per 100 WBC 0 X 10*3/uL (0.00-0.01); Neutrophils % (A) 59.9 %; Platelet Count 222 X 10*3/uL (140-440); RBC 3.82 X 10*6/uL (4.10-5.20); RDW 12.7 % (11.5-14.5); WBC 8.18 X 10*3/uL (4.50-10.00)
[2023-10-14 08:34] VITALS: BP 118/73; RESP 16; TEMP 98.1
[2023-10-14 08:51] LABS: ALT 35 U/L (8-44); AST 28 U/L (13-35); Albumin 3.5 g/dL (3.8-4.9); Albumin/Globulin Ratio 1.52 Ratio (1.60-3.17); Alkaline Phosphatase 41 U/L (41-126); BUN/Creat Ratio 14.67 Ratio (12.00-20.00); Blood Urea Nitrogen 8.8 mg/dL (9.0-27.0); Calcium 8.3 mg/dL (8.7-10.3); Carbon Dioxide 24.1 mmol/L (21.6-31.8); Chloride 106 mmol/L (96-109); Globulin 2.3 g/dL (1.6-3.3); Glucose 96 mg/dL (70-110); Potassium 3.8 mmol/L (3.5-5.5); Sodium 140 mmol/L (135-145); Total Bilirubin 0.3 mg/dL (0.3-1.2); Total Protein 5.8 g/dL (6.2-8.2)
[2023-10-14] MEDS: HYDROcodone/APAP 5-325MG 1 EACH TAB PO PRN (11:18)
--- NOTE | 2023-10-14 11:54 | P.DS ---
Providers Date of admission: 10/12/23 09:02 Expected date of discharge: 10/14/23 Attending physician: Baldev Rubalcava MD Consults: 10/13/23 13:22 Consult Physician Routine Consulting Provider: Sissy Skelton Consult Reason/Comments: medical management Do you want consulting provider notified?: Yes 10/14/23 07:43 Consult Physician Routine Consulting Provider: Abram Arana Consult Reason/Comments: gallstones Do you want consulting provider notified?: Already Contacted Primary care physician: Leny Donahue Hospital Course: Discharge diagnosis 1. Acute cholecystitis status post laparoscopic cholecystectomy Hospital course This is a 33-year-old female who presented with right upper quadrant abdominal pain. She was found to have evidence of acute cholecystitis. She is status post laparoscopic cholecystectomy. She has tolerated surgery well. Pain is controlled. Tolerating diet. She is afebrile. She has been up and ambulating. She is stable for discharge. Please refer to chart for any further details. Physician Corporate Strategy Associate note has been reviewed by physician. Signing provider agrees with the documented findings, assessment, and plan of care. Patient Condition at Discharge: Stable Plan - Discharge Summary Discharge Rx Participant: No New Discharge Prescriptions: New Ibuprofen [Motrin] 600 mg PO Q8HR PRN #30 tab PRN Reason: Pain Docusate [Colace] 100 mg PO BID #30 capsule HYDROcodone/APAP 5-325MG [[place] 5-325] 1 tab PO Q6HR PRN 3 Days #12 tab PRN Reason: Pain Discharge Medication List Docusate [Colace] 100 mg PO BID #30 capsule 10/14/23 [Rx] HYDROcodone/APAP 5-325MG [[place] 5-325] 1 tab PO Q6HR PRN 3 Days #12 tab 10/14/23 [Rx] Ibuprofen [Motrin] 600 mg PO Q8HR PRN #30 tab 10/14/23 [Rx] Follow up Appointment(s)/Referral(s): Leny Donahue MD [Primary Care Provider] - 1-2 days Abram Arana MD [STAFF PHYSICIAN] - 1 Week Activity/Diet/Wound Care/Special Instructions: No driving while taking [place] No lifting over 10 pounds Shower daily. No soaking or tub baths for 2 weeks Very light activity until you are reevaluated at your follow up appointment with your surgeon Discharge Disposition: HOME SELF-CARE
--- NOTE | 2023-10-14 23:31 | PN ---
PROGRESS NOTE DATE OF SERVICE: 10/14/2023 SUBJECTIVE: This is a 33-year-old woman who was admitted after acute cholecystitis, cholelithiasis, improving significantly. No chest pain. No palpitations. No fever. PHYSICAL EXAMINATION: VITAL SIGNS: Pulse is 71, blood pressure 119/70, and respirations 16. CHEST: Clear to auscultation. CARDIOVASCULAR: S1, S2. ABDOMEN: Soft, status post surgery. LABORATORY DATA: WBC 8.8, hemoglobin 11. ASSESSMENT: 1. Acute cholecystitis, cholelithiasis, status post laparoscopic cholecystectomy. 2. Elevated WBC, present on admission, improved. 3. Elevated random glucose appendectomy next recommend to continue current management and treatment, otherwise is continue with current medical follow with Primary Physician and rest of the recommendations per surgery. Resume the home medications. MMODL / IJN: [id number] /
== END 2023-10-14 15:26 | disposition home or self-care (01) ==
LOC: EC 07:25 → 4SSUR 09:02
PROVIDERS: ADMIT Surgery; ATTEND Surgery
DX: K80.10 Calculus of gallbladder with chronic cholecystitis without obstruction (principal); D72.829 Elevated white blood cell count, unspecified; Z79.899 Other long term (current) drug therapy; Z88.1 Allergy status to other antibiotic agents
CPT/HCPCS: 96376 ×3; 96361 ×3; 96365; 96366 ×3; 96372 ×3; 96375; 99285; 36415; 81025; 88304; 80053 ×2; 83605; 83690; 85025 ×2; 81003; 87040; 76705; 47562; G0378 ×3; J2543 ×3; J1100; J2405; J2001; J1650 ×3; J1885; J1170 ×3; J0665

== ENCOUNTER → 2024-01-09 | Outpatient (CLI) | payer BC, OTHER ==
[2024-01-09 14:26] VITALS: BP 113/81; PULSE 95; TEMP 98; BMI 42.0
--- NOTE | 2024-01-09 15:37 | P.HPBAR ---
Bariatric H&P - History & Physicial H&P Date: 01/09/24 History & Physicial: Visit/CC: initial clinic visit Patient initial contact: Initial weight: Initial weight in pounds: Height: 5 ft 3.5 in Initial BMI: Last weight: Current weight: 109.316 kg Current weight in pounds: 241.00 Current BMI: 42.0 [place] body weight (based on NIH guidelines): 53.297 kg Excess body weight loss: The patient is a 33 year-old F who presents for Bariatric Assessment. Patient is here to discuss weight loss surgery. Current BMI 42. Patient states her weight is affecting her ability to interact with her kids and her overall lifestyle. She describes joint pain. Some GERD symptoms. Takes Pepcid as needed. No tobacco use. No dysphagia or DVT. Does not take medications. Surgical history includes cholecystectomy appendectomy x 4 and 5 separate foot surgeries. Review of Systems The patient denies any acute changes in vision or hearing, no dysphagia or odynophagia, no chest pain or shortness of breath, no dysuria or hematuria, no headache, no runny nose, no rectal bleeding or melena, no unexplained weight loss Past Medical History Past Medical History: No Reported History Additional Past Medical History / Comment(s): BLOOD IN STOOL History of Any Multi-Drug Resistant Organisms: None Reported Past Surgical History: Appendectomy, Section, Orthopedic Surgery Additional Past Surgical History / Comment(s): RT BUNIONECTOMY Past Anesthesia/Blood Transfusion Reactions: No Reported Reaction Past Psychological History: No Psychological Hx Reported Smoking Status: Never smoker Past Alcohol Use History: Occasional Past Drug Use History: None Reported - Past Family History Mother History Unknown: Yes Family Medical History: No Reported History Surgical - Exam Vital Signs Temp Pulse BP 98 F 95 113/81 01/09/24 14:06 01/09/24 14:06 01/09/24 14:06 Physical exam: General: Well-developed, well-nourished HEENT: Normocephalic, sclerae nonicteric Abdomen: Nontender, nondistended Extremities: No edema Neuro: Alert and oriented Bariatric Assessment & Plan (1) Morbid obesity with BMI of 40.0-44.9, adult Narrative/Plan: 33-year-old female with morbid obesity. Patient interested in sleeve gastrectomy. Risks and benefits of both sleeve gastrectomy and gastric bypass reviewed in detail. Associated average weight loss also discussed. Will tentatively plan preoperative EGD. This will be arranged. Status: Acute Bariatric Checklist Checklist: Plan: Checklist: EGD: 1. Hiatal hernia: 2. H. Pylori: HgbA1c: Vitamin D: Smoking: Never smoker Primary care physician referral: Psychiatry clearance: Cardiology clearance: Sleep study: Diet journal: VTE risk score: VTE risk level: Rehab needs at discharge:
== END ==
LOC: BARWHC3 13:44
PROVIDERS: ATTEND Surgery
DX: E66.01 Morbid (severe) obesity due to excess calories (principal); K21.9 Gastro-esophageal reflux disease without esophagitis; Z68.41 Body mass index [BMI] 40.0-44.9, adult; Z98.890 Other specified postprocedural states; Z90.49 Acquired absence of other specified parts of digestive tract; Z88.1 Allergy status to other antibiotic agents
CPT/HCPCS: 99212

== ENCOUNTER → 2024-01-10 | Outpatient (CLI) | payer BC, OTHER ==
[2024-01-10 19:06] LABS: HCT 37.5 % (37.2-46.3); HGB 12.7 g/dL (12.0-15.0); MCH 29.2 pg (27.0-32.0); MCHC 33.9 g/dL (32.0-37.0); MCV 86.2 FL (80.0-97.0); Mean Platelet Volume 10.8 FL (9.5-12.2); NRBC Per 100 WBC 0 X 10*3/uL (0.00-0.01); Platelet Count 337 X 10*3/uL (140-440); RBC 4.35 X 10*6/uL (4.10-5.20); RDW 12.7 % (11.5-14.5); WBC 8.67 X 10*3/uL (4.50-10.00)
[2024-01-10 21:11] LABS: ALT 32 U/L (8-44); AST 25 U/L (13-35); Albumin 4.3 g/dL (3.8-4.9); Alkaline Phosphatase 66 U/L (41-126); Calcium 9.3 mg/dL (8.7-10.3); Carbon Dioxide 23.7 mmol/L (21.6-31.8); Chloride 102 mmol/L (96-109); Globulin 3.3 g/dL (1.6-3.3); Glucose 94 mg/dL (70-110); Iron 44 UG/DL (50-170); Potassium 3.8 mmol/L (3.5-5.5); Sodium 139 mmol/L (135-145); Total Bilirubin 0.3 mg/dL (0.3-1.2); Total Protein 7.6 g/dL (6.2-8.2)
[2024-01-14 08:24] LABS: Anabasine Urine <2.0 ng/mL (<2.0)
== END | disposition home or self-care (01) ==
LOC: LABWHC1 11:16
PROVIDERS: ATTEND Surgery
DX: E55.9 Vitamin D deficiency, unspecified (principal); E66.01 Morbid (severe) obesity due to excess calories
CPT/HCPCS: 36415; 80053; 80323; 82306; 82607; 82746; 83036; 83540; 84425; 85027; 93005

== ENCOUNTER 2024-02-18 12:39 | Day surgery (SDC) | payer BC, OTHER ==
[2024-02-12 14:30] VITALS: BMI 43.4
[2024-02-18 13:23] VITALS: TEMP 97.8
[2024-02-18] MEDS: IV FLUID CONTINUATION 1,000 ML IV ONE (13:29)
[2024-02-18] MEDS: LACTATED RINGERS 1,000 ML IV SCH (13:30)
[2024-02-18] MEDS ORDERED: PROPOFOL 10 MG/ML 20 ML VIAL IV ONE (13:45)
[2024-02-18] MEDS ORDERED: LIDOCAINE 1% INJ 10MG/ML (20 ML MDV) ONE (13:45)
--- NOTE | 2024-02-18 13:51 | P.GSHP ---
History of Present Illness H&P Date: 02/18/24 Chief Complaint: GERD 33-year-old male seen recently in the bariatric clinic. Patient is here today for upper endoscopy. Patient with mild reflux. She is interested in sleeve gastrectomy. Past Medical History Past Medical History: No Reported History Additional Past Medical History / Comment(s): BLOOD IN STOOL History of Any Multi-Drug Resistant Organisms: None Reported Past Surgical History: Appendectomy, Section, Orthopedic Surgery Additional Past Surgical History / Comment(s): RT BUNIONECTOMY Past Anesthesia/Blood Transfusion Reactions: No Reported Reaction Additional Past Anesthesia/Blood Transfusion Reaction / Comment(s): no blood transfusion Smoking Status: Never smoker - Past Family History Mother History Unknown: Yes Family Medical History: No Reported History Medications and Allergies Home Medications Medication Instructions Recorded Confirmed Type No Known Home Medications 01/10/24 02/18/24 History Allergies Allergy/AdvReac Type Severity Reaction Status Date / Time Cephalosporins Allergy Intermediate Rash/Hives Verified 02/18/24 13:25 Surgical - Exam Vital Signs Temp Pulse Resp BP Pulse Ox 97.8 F 67 16 135/67 98 02/18/24 13:19 02/18/24 13:19 02/18/24 13:19 02/18/24 13:19 02/18/24 13:19 Physical exam: General: Well-developed, well-nourished HEENT: Normocephalic, sclerae nonicteric Abdomen: Nontender, nondistended Extremities: No edema Neuro: Alert and oriented Assessment and Plan (1) GERD (gastroesophageal reflux disease) Narrative/Plan: Will proceed with EGD at this time Current Visit: Yes Status: Acute Code(s): K21.9 - GASTRO-ESOPHAGEAL REFLUX DISEASE WITHOUT ESOPHAGITIS SNOMED Code(s): 856751183
--- NOTE | 2024-02-18 13:56 | P.PCN ---
Date of Procedure: 02/18/24 Procedure(s) Performed: Preoperative Dx: GERD, presurgical Postoperative Dx: Gastritis, hiatal hernia, distal esophagitis Procedure: EGD with Bx Anesthesia: Sedation Endoscopist: Dr. Contreras Specimens: Antrum, distal esophagus Endoscopic Procedure: The patient was on the endoscopy table in the left decubitus position. The Olympus gastroscope was inserted into the oropharynx and passed under direct visualization to the region of the third portion of the duodenum. From that point the scope was slowly withdrawn inspecting all surfaces carefully. There were no neoplastic inflammatory or polypoid lesions throughout the duodenum. The pylorus was widely patent. The stomach was carefully inspected. There was mild gastritis present. A biopsy of the antrum took place to rule out H. pylori. Retroflexion revealed a sliding hiatal hernia. The GE junction was present 1.5 cm above the diaphragm. At the GE junction there were multiple small linear erosions. These were noncircumferential. These measured less than 1 cm length. Biopsies were taken. The remainder the esophagus appeared normal. The patient was then taken to the recovery room in stable condition per anesthesia guidelines. Recommendations: Await biopsy results. Begin antiacid therapy. Continue presurgical workup.
[2024-02-18 14:34] VITALS: BP 110/65; PULSE 70; RESP 17
== END 2024-02-18 14:37 | disposition home or self-care (01) ==
LOC: ORWHC2ENDO 12:39
PROVIDERS: ATTEND Surgery
DX: K29.50 Unspecified chronic gastritis without bleeding (principal); K21.00 Gastro-esophageal reflux disease with esophagitis, without bleeding; K44.9 Diaphragmatic hernia without obstruction or gangrene; Z88.1 Allergy status to other antibiotic agents; Z90.49 Acquired absence of other specified parts of digestive tract
CPT/HCPCS: 81025; 88305; 43239; J2001; J2704

== ENCOUNTER → 2024-03-10 | Outpatient (CLI) | payer BC, OTHER ==
[2024-03-10 14:24] VITALS: BP 111/72; PULSE 53; TEMP 98.6; BMI 42.7
--- NOTE | 2024-03-10 14:30 | P.BASOAP ---
Subjective Progress Note Date: 03/10/24 Principal diagnosis: Morbid obesity Patient returns after recent preoperative EGD. EGD showed gastritis and a hiatal hernia. Doing well. Biopsies negative for H. pylori. Objective - Vital Signs Vital signs: Vital Signs Temp 98.6 F 03/10/24 14:22 Pulse 53 L 03/10/24 14:22 Resp BP 111/72 03/10/24 14:22 Pulse Ox FiO2 Intake & Output 03/09/24 03/10/24 03/10/24 18:59 06:59 18:59 Weight 111.13 kg - Exam Abdomen: Soft, nontender, nondistended Assessment/Plan (1) Morbid obesity with BMI of 40.0-44.9, adult Narrative/Plan: 33-year-old female remains interested in sleeve gastrectomy. Was started on antiacids and her GERD symptoms are completely resolved at this time. We d iscussed the significance of the recent hiatal hernia and the increased risk of postoperative reflux potentially even resulting and the need for later conversion to gastric bypass. The surgical consent form likewise reviewed in detail. Patient remains interested in sleeve gastrectomy. Await medical clearance and nutrition classes. Will schedule. The risks of bleeding, infection, stenosis, stricture, leak, abscess, fistula formation, peritonitis, poor weight loss, reflux, vomiting, conversion to an open procedure, aborting sleeve gastrectomy, GA, PE, DVT, and were discussed. The patient understands and wishes to proceed. Plan: Date: 03/10/24 Initial Weight: Initial BMI: Current Weight: 111.13 kg Current BMI: 42.7 Type of Surgery: Total Volume in Band: Previous Volume: Volume Removed: Volume Added: Band Size:
== END ==
LOC: BARWHC3 13:53
PROVIDERS: ATTEND Surgery
DX: E66.01 Morbid (severe) obesity due to excess calories (principal); K21.9 Gastro-esophageal reflux disease without esophagitis; K29.70 Gastritis, unspecified, without bleeding; K44.9 Diaphragmatic hernia without obstruction or gangrene; Z68.41 Body mass index [BMI] 40.0-44.9, adult; Z88.1 Allergy status to other antibiotic agents
CPT/HCPCS: 99211

== ENCOUNTER → 2024-03-16 | Outpatient (CLI) | payer BC, OTHER ==
--- NOTE | 2024-03-16 08:28 | MM ---
Reason for Exam: Clinical finding. Patient History: Menarche at age 14. First Full-Term at age 20. Premenopausal. Paternal grandmother had breast cancer. Last menstrual period: 02/14/2024 Prior Study Comparison: 02/25/2009 Bilateral Diagnostic Ultrasound, [facility]. Tissue Density: The breasts are extremely dense, which lowers the sensitivity of mammography. Findings: Analyzed By CAD. The pattern is symmetrical. No suspicious groups of microcalcifications, spiculated or lobular masses, architectural distortion or other secondary signs of malignancy are mammographically apparent. Overall Assessment: Negative, BI-RAD 1 Management: Screening Mammogram of both breasts at age 41. A negative mammogram report should not preclude additional follow up of suspicious palpable abnormalities. Patient should continue monthly self breast exam. A clinical breast exam by your physician is recommended on an annual basis and results should be correlated with mammographic findings. Note on Jess scores and lifetime risk: 1. A Jess score greater than 3% is considered moderate risk. If this is the case, consider specialist referral to assess eligibility for a risk reducing agent. 2. If overall lifetime risk for the development of breast cancer is 20% or higher, the patient may qualify for future screening with alternating mammogram and breast MRI. Electronically signed and approved by: Tyrel Garcia D.O. Radiologis
== END | disposition home or self-care (01) ==
LOC: RADMAMWWP 06:59
PROVIDERS: ATTEND Family Medicine
DX: R92.343 Mammographic extreme density, bilateral breasts (principal); R92.30 Dense breasts, unspecified; N64.4 Mastodynia; Z80.3 Family history of malignant neoplasm of breast
CPT/HCPCS: 77062; 77066

== ENCOUNTER → 2024-04-01 | Outpatient (CLI) | payer BC, OTHER ==
[2024-04-01 10:33] LABS: Basophils # (A) 0.04 X 10*3/uL (0.00-0.10); Basophils % (A) 0.5 %; Eosinophils # (A) 0.09 X 10*3/uL (0.04-0.35); Eosinophils % (A) 1.2 %; HCT 38.3 % (37.2-46.3); HGB 12.8 g/dL (12.0-15.0); Lymphocytes # (A) 2.63 X 10*3/uL (0.90-5.00); MCH 29.1 pg (27.0-32.0); MCHC 33.4 g/dL (32.0-37.0); Mean Platelet Volume 11.7 FL (9.5-12.2); Monocytes # (A) 0.52 X 10*3/uL (0.20-1.00); Monocytes % (A) 6.7 %; NRBC Per 100 WBC 0 X 10*3/uL (0.00-0.01); Neutrophils # (A) 4.44 X 10*3/uL (1.80-7.70); Neutrophils % (A) 57.5 %; Platelet Count 273 X 10*3/uL (140-440); RDW 12.9 % (11.5-14.5); WBC 7.73 X 10*3/uL (4.50-10.00)
[2024-04-01 10:39] LABS: ALT 33 U/L (8-44); AST 28 U/L (13-35); Albumin 4.4 g/dL (3.8-4.9); Albumin/Globulin Ratio 1.42 Ratio (1.60-3.17); Alkaline Phosphatase 61 U/L (41-126); BUN/Creat Ratio 17.43 Ratio (12.00-20.00); Blood Urea Nitrogen 12.2 mg/dL (9.0-27.0); Calcium 9.1 mg/dL (8.7-10.3); Carbon Dioxide 23.8 mmol/L (21.6-31.8); Chloride 102 mmol/L (96-109); Globulin 3.1 g/dL (1.6-3.3); Glucose 87 mg/dL (70-110); Potassium 4.5 mmol/L (3.5-5.5); Sodium 139 mmol/L (135-145); Total Bilirubin 0.6 mg/dL (0.3-1.2); Total Protein 7.5 g/dL (6.2-8.2)
== END | disposition home or self-care (01) ==
LOC: LABPAT 07:41
PROVIDERS: ATTEND Surgery
DX: Z01.812 Encounter for preprocedural laboratory examination (principal)
CPT/HCPCS: 80053; 85025; 86850; 86900; 86901

== ENCOUNTER 2024-04-16 10:00 | Inpatient (IN) | payer BC, OTHER ==
[2024-04-02 14:46] VITALS: BMI 41.4
[~2024-04-16 10:00] MED LIST changes: +ACETAMINOPHEN IV (For NPO) 100 ML ONE; +ACETAMINOPHEN TAB 500 MG TAB ONE; +ACETAMINOPHEN TAB 500 MG TAB PO PRN; +DEXAMETHASONE SOD PHOSPHATE 4 MG/ML 1 ML VIAL ONE; +ENOXAPARIN 40 MG/0.4 ML SYRINGE SQ ONE; +ENOXAPARIN 40 MG/0.4 ML SYRINGE SQ PRN; +GLYCOPYRROLATE 0.2 MG/ML 2 ML VIAL ONE; +HYDROmorphone (PF) 1 MG/ML ONE; +HYDROmorphone 0.5 MG/0.5 ML SYRINGE ONE; +HYDROmorphone 1 MG/ML 1 ML SYRINGE ONE; +KETOROLAC 15 MG/ML 1 ML VIAL ONE; -LACTATED RINGERS 1,000 ML IV SCH; -LIDOCAINE 1% (10MG/ML) FOR IV START INTRADERMA PRN; +LIDOCAINE 1% INJ 10MG/ML (20 ML MDV) ONE; +MIDAZOLAM 2 MG/2 ML VIAL ONE; +NEOSTIGMINE 1 MG/ML 10 ML VIAL ONE; +ONDANSETRON 4 MG/2 ML VIAL IVP PRN; +ONDANSETRON 4 MG/2 ML VIAL ONE; +PANTOPRAZOLE 40 MG/10 ML VIAL ONE; +PHENYLEPHRINE 10 MG/ML VIAL ONE; +ROCURONIUM 10 MG/ML (5 ML VIAL) IV ONE; +SUCCINYLCHOLINE CHLORIDE 200 MG/10 ML VIAL IV ONE; +diphenhydrAMINE 50 MG/ML 1 ML VIAL ONE; +droPERidol 5 MG/2 ML VIAL ONE; +fentaNYL (PF) 50 MCG/ML 2 ML AMP ONE
--- NOTE | 2024-04-24 15:51 | OP ---
OPERATIVE REPORT DATE OF SERVICE : PREOPERATIVE DIAGNOSES: 1. Morbid obesity. 2. Hiatal hernia. POSTOPERATIVE DIAGNOSES: 1. Morbid obesity. 2. Hiatal hernia. PROCEDURES PERFORMED: Laparoscopic da Norman assisted sleeve gastrectomy, laparoscopic hiatal hernia repair. ANESTHESIA: General. COMPLICATIONS: None. OPERATIVE PROCEDURE: The patient was brought and placed on the OR table in supine position. The patient was placed under general anesthesia. The abdomen was prepped and draped sterilely. The patient was placed in reverse Trendelenburg. A 5 mm optical trocar was used to enter the peritoneal cavity and left upper quadrant. Insufflation took place up to 50 mmHg. A 12-mm trocar was then placed in the lateral aspect of the right upper quadrant. I then replaced the 5-mm trocar with an 8-mm trocar. Two additional 8-mm trocars were placed in the upper abdomen transversely from our other 2 prior trocar placements. Additional fifth 5-mm right subcostal trocar was placed for liver retraction. The liver retractor was used to elevate the left lobe of the liver anteriorly. This was connected to the external retractor. The robot was then brought and docked in place. Arm 1 had a bipolar forceps, arm 2 had the camera, arm 3 had our vessel sealer and arm 4 had a small grasper. The patient's stomach was of average size. The greater curvature of the stomach was fully mobilized using LigaSure. Following that, dissection took place posteriorly at the hiatus. The patient's hiatal hernia was inspected and circumferential dissection took place. The esophagus and proximal stomach was mobilized. Care was taken to avoid injury to the vagus nerve. Once we had adequate visualization of the posterior aspect of the hiatus, we proceeded with our sleeve gastrectomy. A dilator 40-Green[place] blunt tip was advanced into the stomach. A total of 5 firings of the stapler took place. First firing was green without SeamGuard, second firing was blue without SeamGuard, and the last 3 firings of the stapler were blue with SeamGuard. The stomach was then placed in the right upper quadrant. The pressure was dropped to 8 mm. No bleeding was seen. I then repaired the hiatus after removing the dilator and advancing an orogastric tube once again. The hiatus posteriorly was reapproximated using a running nonabsorbable 2-0 V loc suture. This closed the hiatus nicely. This did not appear to be overly tight. The stomach was then insufflated with 100 cc of methylene blue. No leak was seen. Tisseel fibrin glue was used along the length of staple line. The stomach was then removed from the 12-mm trocar site without difficulty. The fascia there was closed using a figure-of- eight 0 Vicryl Keven-Latasha suture. Skin in all 5 sites was closed using 4-0 Monocryl sutures. Skin glue and sterile dressing was applied. MMODL / IJN: [id number] /
== END 2024-04-18 12:39 | disposition home or self-care (01) | DRG 621 ==
LOC: OR 10:00 → 4SSUR 10:33 → UNDOADMIN 10:33 → DISRECOVER 10:33
PROVIDERS: ADMIT Surgery; ATTEND Surgery
PROC: 0DB64Z3 Excision of Stomach, Percutaneous Endoscopic Approach, Vertical (ICD-10-PCS; principal; 2024-04-16)
PROC: 0BQT4ZZ Repair Diaphragm, Percutaneous Endoscopic Approach (ICD-10-PCS; 2024-04-16)
PROC: 8E0W4CZ Robotic Assisted Procedure of Trunk Region, Percutaneous Endoscopic Approach (ICD-10-PCS; 2024-04-16)
DX: E66.01 Morbid (severe) obesity due to excess calories (principal); K21.9 Gastro-esophageal reflux disease without esophagitis; K44.9 Diaphragmatic hernia without obstruction or gangrene; M47.816 Spondylosis without myelopathy or radiculopathy, lumbar region; M19.071 Primary osteoarthritis, right ankle and foot; Z87.11 Personal history of peptic ulcer disease; Z79.899 Other long term (current) drug therapy

== ENCOUNTER → 2024-05-12 | Outpatient (CLI) | payer BC, OTHER ==
[2024-05-12 14:00] VITALS: BP 130/82; PULSE 61; RESP 16; TEMP 98.7; BMI 36.6
--- NOTE | 2024-05-12 14:19 | P.BASOAP ---
Subjective Progress Note Date: 05/12/24 Principal diagnosis: Morbid obesity Patient returns for recheck. Last seen 04/14. Doing well. Was on the treadmill last week and noticed some soreness right upper quadrant. Better today. No nausea or vomiting. No significant heartburn symptoms. Still on omeprazole daily. No vomiting. She has lost 9 pounds. Some constipation. Objective - Vital Signs Vital signs: Vital Signs Temp 98.7 F 05/12/24 13:57 Pulse 61 05/12/24 13:57 Resp 16 05/12/24 13:57 BP 130/82 05/12/24 13:57 Pulse Ox FiO2 Intake & Output 05/11/24 05/12/24 05/12/24 18:59 06:59 18:59 Weight 95.254 kg - Exam Abdomen: Soft, nondistended, incisions clean and dry, mild tenderness at extraction site, no palpable hernia Assessment/Plan (1) GERD (gastroesophageal reflux disease) Narrative/Plan: 34-year-old female doing well after recent sleeve gastrectomy. Check 1 month labs. Increase exercise frequency. Monitor tenderness at extraction site. Add MiraLAX to her daily protein drink. Follow-up 4 to 6 weeks. Plan: Date: 05/12/24 Initial Weight: 109.401 kg Initial BMI: 42.0 Current Weight: 95.254 kg Current BMI: 36.6 Type of Surgery: Vertical Sleeve Gastrectomy Total Volume in Band: Previous Volume: Volume Removed: Volume Added: Band Size:
== END ==
LOC: BARWHC3 13:49
PROVIDERS: ATTEND Surgery
CPT/HCPCS: 97803; 99211

== ENCOUNTER 2024-08-10 12:06 | Emergency (ER) | payer BC, OTHER ==
[2024-08-10 12:13] VITALS: RESP 18
[2024-08-10 14:17] LABS: Basophils % (A) 0 %; Eosinophils # (A) 0.2 k/uL (0-0.7); Eosinophils % (A) 2 %; HCT 38.5 % (34.0-46.0); HGB 12.9 gm/dL (11.4-16.0); Lymphocytes # (A) 2.7 k/uL (1.0-4.8); Lymphocytes % (A) 26 %; MCH 29.3 pg (25.0-35.0); MCHC 33.5 g/dL (31.0-37.0); MCV 87.3 fL (80.0-100.0); Mean Platelet Volume 8.4; Monocytes # (A) 0.4 k/uL (0-1.0); Monocytes % (A) 4 %; Neutrophils # (A) 7.1 k/uL (1.3-7.7); Neutrophils % (A) 67 %; Platelet Count 254 k/uL (150-450); RBC 4.41 m/uL (3.80-5.40); RDW 12.4 % (11.5-15.5); WBC 10.6 k/uL (3.8-10.6)
[2024-08-10 14:22] LABS: Appearance,Urine Clear (Clear); Bilirubin,Urine Negative (Negative); Blood,Urine Negative (Negative); Color,Urine Light Yellow; Glucose,Urine (UA) Negative (Negative); Ketones,Urine Negative (Negative); Leukocyte Esterase,Urine Negative (Negative); Nitrite,Urine Negative (Negative); Protein,Urine Negative (Negative); Specific Gravity,Urine 1.022 (1.001-1.035)
[2024-08-10 14:32] LABS: ALT 13 U/L (4-34); AST 18 U/L (14-36); African American GFR (CKD) >90 (>60 ml/min/1.73 sqM); Albumin 4.6 g/dL (3.5-5.0); Alkaline Phosphatase 60 U/L (38-126); Anion Gap 9 mmol/L; Blood Urea Nitrogen 13 mg/dL (7-17); Calcium 9.1 mg/dL (8.4-10.2); Carbon Dioxide 24 mmol/L (22-30); Chloride 106 mmol/L (98-107); Glucose 86 mg/dL (74-99); Non-African American GFR(CKD) >90 (>60 ml/min/1.73 sqM); Potassium 4.3 mmol/L (3.5-5.1); Sodium 139 mmol/L (137-145); Total Bilirubin 0.5 mg/dL (0.2-1.3); Total Protein 7.7 g/dL (6.3-8.2)
[2024-08-10 14:33] LABS: Partial Thromboplastin Time 26.6 sec (22.0-30.0); Prothrombin Time 10.5 sec (10.0-12.5)
[2024-08-10 14:47] LABS: HCG,Quantitative Serum 77.7 mIU/mL
--- NOTE | 2024-08-10 14:53 | ED ---
General Adult HPI - General Chief complaint: Vaginal Bleeding Stated complaint: Vaginal bleeding-Preg not sure how far Time Seen by Provider: 08/10/24 12:15 Source: patient, RN notes reviewed Mode of arrival: ambulatory Limitations: no limitations - History of Present Illness Initial comments: 34-year-old G8, P4 female presents to the emergency department for evaluation of vaginal bleeding. Last menstrual period July 03. Patient reports that she has had vaginal spotting starting today. She denies going through multiple pads. She typically follows with Dr. Flores but she has not gotten into see her yet. She denies any significant abdominal pain. Denies recent fever, chills. Denies nausea, vomiting. - Related Data Previous Rx's Medication Instructions Recorded Omeprazole [PriLOSEC] 20 mg PO AC-BRKFST #90 cap 02/18/24 Allergies Allergy/AdvReac Type Severity Reaction Status Date / Time Cephalosporins Allergy Intermediate Rash/Hives Verified 08/10/24 12:09 Review of Systems ROS Statement: Those systems with pertinent positive or pertinent negative responses have been documented in the HPI. ROS Other: All systems not noted in ROS Statement are negative. Past Medical History Past Medical History: Osteoarthritis (OA) Additional Past Medical History / Comment(s): BLOOD IN STOOL. osteoarthritis lumbar back and right foot History of Any Multi-Drug Resistant Organisms: None Reported Past Surgical History: Appendectomy, Bariatric Surgery, Section, Cholecystectomy, Orthopedic Surgery Additional Past Surgical History / Comment(s): RT BUNIONECTOMY,EGD. Sleeve Gastrectomy 04-06-24 Past Anesthesia/Blood Transfusion Reactions: No Reported Reaction Additional Past Anesthesia/Blood Transfusion Reaction / Comment(s): no blood transfusion Past Psychological History: No Psychological Hx Reported Smoking Status: Never smoker Past Alcohol Use History: Occasional Past Drug Use History: None Reported - Past Family History Mother History Unknown: Yes Family Medical History: No Reported History General Exam Limitations: no limitations General appearance: alert, in no apparent distress Head exam: Present: atraumatic, normocephalic, normal inspection Eye exam: Present: normal appearance, PERRL, EOMI. Absent: scleral icterus, conjunctival injection, periorbital swelling ENT exam: Present: normal exam, mucous membranes moist Neck exam: Present: normal inspection. Absent: tenderness, meningismus, lymphadenopathy Respiratory exam: Present: normal lung sounds bilaterally. Absent: respiratory distress, wheezes, rales, rhonchi, stridor Cardiovascular Exam: Present: regular rate, normal rhythm, normal heart sounds. Absent: systolic murmur, diastolic murmur, rubs, gallop, clicks GI/Abdominal exam: Present: soft, normal bowel sounds. Absent: distended, tenderness, guarding, rebound, rigid Extremities exam: Present: normal inspection, full ROM, normal capillary refill. Absent: tenderness, pedal edema, joint swelling, calf tenderness Neurological exam: Present: alert, oriented X3 Psychiatric exam: Present: normal affect, normal mood Skin exam: Present: warm, dry, intact, normal color. Absent: rash Course Vital Signs 08/10/24 08/10/24 12:09 16:17 Temperature 98.3 F 97.9 F Pulse Rate 91 63 Respiratory 18 18 Rate Blood Pressure 126/84 106/71 O2 Sat by Pulse 99 100 Oximetry Medical Decision Making - Medical Decision Making Was pt. sent in by a medical professional or institution (JOVANY Fernandez, VENDING TECHNICIAN, urgent care, hospital, or group home...) When possible be specific @ -[No] Did you speak to anyone other than the patient for history (EMS, parent, family, police, friend...)? What history was obtained from this source @ -[No] Did you review nursing and triage notes (agree or disagree)? Why? @ -[I reviewed and agree with nursing and triage notes] Were old charts reviewed (outside hosp., previous admission, EMS record, old EK G, old radiological studies, urgent care reports/EKG's, group home records)? Report findings @ -[No old charts were reviewed] Differential Diagnosis (chest pain, altered mental status, abdominal pain women, abdominal pain men, vaginal bleeding, weakness, fever, dyspnea, syncope, headache, dizziness, GI bleed, back pain, seizure, CVA, palpatations, mental health, musculoskeletal)? @ -[not applicable] EKG interpreted by me (3pts min.). @ -[None] X-rays interpreted by me (1pt min.). @ -[None done] CT interpreted by me (1pt min.). @ -[None done] U/S interpreted by me (1pt. min.). @ -[Ultrasound reveals no evidence of intrauterine at this time] What testing was considered but not performed or refused? (CT, X-rays, U/S, labs)? Why? @ -[None] What meds were considered but not given or refused? Why? @ -[None] Did you discuss the management of the patient with other professionals (professionals i.e. , PA, VENDING TECHNICIAN, lab, RT, psych nurse, licensed social worker, cardiac rehabilitation specialist, teacher, army officer, medical case manager)? Give summary @ -[No] Was smoking cessation discussed for >3mins.? @ -[No] Was critical care preformed (if so, how long)? @ -[No] Were there social determinants of health that impacted care today? How? (Homelessness, low income, unemployed, alcoholism, drug addiction, trans portation, low edu. Level, literacy, decrease access to med. care, retirement, rehab)? @ -[No] Was there de-escalation of care discussed even if they declined (Discuss DNR or withdrawal of care, Hospice)? DNR status @ -[No] What co-morbidities impacted this encounter? (DM, HTN, Smoking, COPD, CAD, Cance r, CVA, ARF, Chemo, Hep., AIDS, mental health diagnosis, sleep apnea, morbid obesity)? @ -[None] Was patient admitted / discharged? Hospital course, mention meds given and route, prescriptions, significant lab abnormalities, going to OR and other pertinent info. @ -[hospital course] Undiagnosed new problem with uncertain prognosis? @ -[No] Drug Therapy requiring intensive monitoring for toxicity (Heparin, Nitro, Insulin, Cardizem)? @ -[No] Were any procedures done? @ -[No] Diagnosis/symptom? @ -[default] Acute, or Chronic, or Acute on Chronic? @ -[default] Uncomplicated (without systemic symptoms) or Complicated (systemic symptoms)? @ -[default] Side effects of treatment? @ -[No] Exacerbation, Progression, or Severe Exacerbation? @ -[No] Poses a threat to life or bodily function? How? (Chest pain, USA, CT, pneumonia, PE, COPD, DKA, ARF, appy, cholecystitis, CVA, Diverticulitis, Homicidal, Suicidal, threat to staff... and all critical care pts) @ -[No] - Lab Data Result diagrams: 08/10/24 13:56 08/10/24 13:56 Lab Results 08/10/24 08/10/24 08/10/24 Range/Units 13:56 13:56 13:56 WBC 10.6 (3.8-10.6) k/uL RBC 4.41 (3.80-5.40) m/uL Hgb 12.9 (11.4-16.0) gm/dL Hct 38.5 (34.0-46.0) % MCV 87.3 (80.0-100.0) fL MCH 29.3 (25.0-35.0) pg MCHC 33.5 (31.0-37.0) g/dL RDW 12.4 (11.5-15.5) % Plt Count 254 (150-450) k/uL MPV 8.4 Neutrophils % 67 % Lymphocytes % 26 % Monocytes % 4 % Eosinophils % 2 % Basophils % 0 % Neutrophils # 7.1 (1.3-7.7) k/uL Lymphocytes # 2.7 (1.0-4.8) k/uL Monocytes # 0.4 (0-1.0) k/uL Eosinophils # 0.2 (0-0.7) k/uL Basophils # 0.0 (0-0.2) k/uL PT 10.5 (10.0-12.5) sec INR 1.0 (<1.2) APTT 26.6 (22.0-30.0) sec Sodium (137-145) mmol/L Potassium (3.5-5.1) mmol/L Chloride (98-107) mmol/L Carbon Dioxide (22-30) mmol/L Anion Gap mmol/L BUN (7-17) mg/dL Creatinine (0.52-1.04) mg/dL Est GFR (CKD-EPI)AfAm (>60 ml/min/1.73 sqM) Est GFR (CKD-EPI)NonAf (>60 ml/min/1.73 sqM) Glucose (74-99) mg/dL Calcium (8.4-10.2) mg/dL Total Bilirubin (0.2-1.3) mg/dL AST (14-36) U/L ALT (4-34) U/L Alkaline Phosphatase (38-126) U/L Total Protein (6.3-8.2) g/dL Albumin (3.5-5.0) g/dL HCG, Quant mIU/mL Urine Color Light Yellow Urine Appearance Clear (Clear) Urine pH 8.0 (5.0-8.0) Ur Specific [place] 1.022 (1.001-1.035) Urine Protein Negative (Negative) Urine Glucose (UA) Negative (Negative) Urine Ketones Negative (Negative) Urine Blood Negative (Negative) Urine Nitrite Negative (Negative) Urine Bilirubin Negative (Negative) Urine Urobilinogen 4.0 (<2.0) mg/dL Ur Leukocyte Esterase Negative (Negative) Blood Type Blood Type Recheck Bld Type Recheck Status Antibody Screen Spec Expiration Date 08/10/24 08/10/24 Range/Units 13:56 13:56 WBC (3.8-10.6) k/uL RBC (3.80-5.40) m/uL Hgb (11.4-16.0) gm/dL Hct (34.0-46.0) % MCV (80.0-100.0) fL MCH (25.0-35.0) pg MCHC (31.0-37.0) g/dL RDW (11.5-15.5) % Plt Count (150-450) k/uL MPV Neutrophils % % Lymphocytes % % Monocytes % % Eosinophils % % Basophils % % Neutrophils # (1.3-7.7) k/uL Lymphocytes # (1.0-4.8) k/uL Monocytes # (0-1.0) k/uL Eosinophils # (0-0.7) k/uL Basophils # (0-0.2) k/uL PT (10.0-12.5) sec INR (<1.2) APTT (22.0-30.0) sec Sodium 139 (137-145) mmol/L Potassium 4.3 (3.5-5.1) mmol/L Chloride 106 (98-107) mmol/L Carbon Dioxide 24 (22-30) mmol/L Anion Gap 9 mmol/L BUN 13 (7-17) mg/dL Creatinine 0.62 (0.52-1.04) mg/dL Est GFR (CKD-EPI)AfAm >90 (>60 ml/min/1.73 sqM) Est GFR (CKD-EPI)NonAf >90 (>60 ml/min/1.73 sqM) Glucose 86 (74-99) mg/dL Calcium 9.1 (8.4-10.2) mg/dL Total Bilirubin 0.5 (0.2-1.3) mg/dL AST 18 (14-36) U/L ALT 13 (4-34) U/L Alkaline Phosphatase 60 (38-126) U/L Total Protein 7.7 (6.3-8.2) g/dL Albumin 4.6 (3.5-5.0) g/dL HCG, Quant 77.7 mIU/mL Urine Color Urine Appearance (Clear) Urine pH (5.0-8.0) Ur Specific [place] (1.001-1.035) Urine Protein (Negative) Urine Glucose (UA) (Negative) Urine Ketones (Negative) Urine Blood (Negative) Urine Nitrite (Negative) Urine Bilirubin (Negative) Urine Urobilinogen (<2.0) mg/dL Ur Leukocyte Esterase (Negative) Blood Type A Positive Blood Type Recheck A Pos Bld Type Recheck Status No Antibody Screen NEGATIVE Spec Expiration Date 08/13/20242355 Disposition Clinical Impression: Threatened Disposition: HOME SELF-CARE Condition: Stable Instructions (If sedation given, give patient instructions): Threatened Miscarriage (ED) Additional Instructions: Please follow-up with Dr. Flores. Return to the emergency department for new or worsening symptoms. Is patient prescribed a controlled substance at d/c from ED?: No Referrals: Leny Donahue MD [Primary Care Provider] - 1-2 days
--- NOTE | 2024-08-10 15:12 | US ---
EXAMINATION TYPE: Transabdominal DATE OF EXAM: 08/10/2024 2:28 PM COMPARISON: NONE CLINICAL INDICATION: Female, 34 years old with history of pain, 6 wks; Spotting started this AM Patient had a tubal and then tubal reversal in 2019 with multiple failed rounds of IVF. TECHNIQUE: with grayscale and color Doppler imaging including first trimester . FINDINGS: EXAM MEASUREMENTS: GESTATIONAL AGE / DATING Physician Established: Not yet established ( weeks/ days) EDC: Dates by LMP: (5 weeks/3 days) EDC: 04/09/2025 Dates by First Scan: No previous this is first scan ( weeks/ days) EDC: Dates by Current Scan for: Unable to date by today's study ( weeks/ days) EDC: MATERNAL ANATOMY Uterus: 8.4 x 4.8 x 6.5 cm Right Ovary: 2.8 x 1.5 x 1.9 Left Ovary: 2.8 x 1.9 x 1.9 cm Post CDS / Adnexa: WNL Presence of free fluid: No Presence of corpus luteal cyst: ? Left ovary Presence of subchorionic bleed: No Endometrium = 2.0 cm GESTATION / SURVEY CRL: Not seen ( weeks/ days) Gestational Sac morphology: Not seen Gestational Sac MSD: Not seen ( weeks/ days) Yolk Sac (normal less than 6mm): Not seen Heart Rate: Not able to assess bpm Rhythm: Not able to assess IUP: No IUP seen at this time Nuchal Translucency 10-14wks (normal less than 3mm): Not able to assess Age Appropriate Anatomy Cord Insertion: Not able to assess Limbs: Not able to assess Calvarium: Not able to assess Date of LMP: 07/03/2024 Beta HcG (if available): Not done by ER staff IMPRESSION: No evidence of intrauterine gestational sac, correlate with B-hCG. If positive, this could represent early , ectopic or spontaneous . Follow up pelvic ultrasound in 5-7 days a nd serial beta hCG studies are recommended. [facility], , 08/10/2024 3:10 PM
[2024-08-10 16:24] VITALS: BP 106/71; PULSE 63; TEMP 97.9
== END 2024-08-10 16:18 | disposition home or self-care (01) ==
LOC: EC 12:06
DX: O20.0 Threatened abortion (principal); Z88.1 Allergy status to other antibiotic agents; Z3A.01 Less than 8 weeks gestation of pregnancy
CPT/HCPCS: 36415; 76801; 76817; 80053; 81003; 84702; 85025; 85610; 85730; 86850; 86900; 86901; 99284

== ENCOUNTER 2024-08-19 10:14 | Emergency (ER) | payer BC, OTHER ==
[2024-08-19 10:57] LABS: Basophils % (A) 1 %; Eosinophils # (A) 0.1 k/uL (0-0.7); Eosinophils % (A) 1 %; HGB 13.2 gm/dL (11.4-16.0); Lymphocytes % (A) 35 %; MCH 29.6 pg (25.0-35.0); MCHC 33.8 g/dL (31.0-37.0); MCV 87.5 fL (80.0-100.0); Mean Platelet Volume 8.9; Monocytes # (A) 0.3 k/uL (0-1.0); Monocytes % (A) 4 %; Neutrophils # (A) 4.9 k/uL (1.3-7.7); Neutrophils % (A) 58 %; Platelet Count 269 k/uL (150-450); RBC 4.46 m/uL (3.80-5.40); RDW 12.7 % (11.5-15.5); WBC 8.5 k/uL (3.8-10.6)
[2024-08-19 11:10] LABS: ALT 16 U/L (4-34); AST 22 U/L (14-36); African American GFR (CKD) >90 (>60 ml/min/1.73 sqM); Albumin 4.6 g/dL (3.5-5.0); Alkaline Phosphatase 56 U/L (38-126); Anion Gap 8 mmol/L; Blood Urea Nitrogen 11 mg/dL (7-17); Calcium 9.7 mg/dL (8.4-10.2); Carbon Dioxide 21 mmol/L (22-30); Chloride 108 mmol/L (98-107); Glucose 107 mg/dL (74-99); Non-African American GFR(CKD) >90 (>60 ml/min/1.73 sqM); Potassium 3.8 mmol/L (3.5-5.1); Sodium 137 mmol/L (137-145); Total Bilirubin 0.6 mg/dL (0.2-1.3); Total Protein 7.6 g/dL (6.3-8.2)
[2024-08-19 11:26] LABS: HCG,Quantitative Serum 167.6 mIU/mL
--- NOTE | 2024-08-19 12:24 | ED ---
General Adult HPI - General Chief complaint: Vaginal Bleeding Stated complaint: 6 wks preg, bleeding Time Seen by Provider: 08/19/24 10:20 Source: patient Mode of arrival: ambulatory Limitations: no limitations - History of Present Illness Initial comments: 34-year-old female who G8, P4 presents to the emergency department approximately 6 weeks . States that the patient had her last menstrual cycle on July 07. She started having some bleeding on the . She was seen and had a laboratory studies completed as well as an ultrasound. She was supposed to follow-up in 48 hours for repeat blood work. Patient did not have this blood work completed. She [facility] did [facility] test and told her that everything ok. She reports that the bleeding stopped but then it started again. She says the bleeding is very mild. She denies any abdominal pain. No other alleviating, precipitating or modifying factors - Related Data Previous Rx's Medication Instructions Recorded Omeprazole [PriLOSEC] 20 mg PO AC-BRKFST #90 cap 02/18/24 Allergies Allergy/AdvReac Type Severity Reaction Status Date / Time Cephalosporins Allergy Intermediate Rash/Hives Verified 08/19/24 10:19 Review of Systems ROS Statement: Those systems with pertinent positive or pertinent negative responses have been documented in the HPI. ROS Other: All systems not noted in ROS Statement are negative. Past Medical History Past Medical History: Osteoarthritis (OA) Additional Past Medical History / Comment(s): BLOOD IN STOOL. osteoarthritis lumbar back and right foot History of Any Multi-Drug Resistant Organisms: None Reported Past Surgical History: Appendectomy, Bariatric Surgery, Section, Cholecystectomy, Orthopedic Surgery Additional Past Surgical History / Comment(s): RT BUNIONECTOMY,EGD. Sleeve Gastrectomy 04-06-24 Past Anesthesia/Blood Transfusion Reactions: No Reported Reaction Additional Past Anesthesia/Blood Transfusion Reaction / Comment(s): no blood transfusion Past Psychological History: No Psychological Hx Reported Smoking Status: Never smoker Past Alcohol Use History: Occasional Past Drug Use History: None Reported - Past Family History Mother History Unknown: Yes Family Medical History: No Reported History General Exam Limitations: no limitations General appearance: alert, in no apparent distress Head exam: Present: atraumatic, normocephalic, normal inspection Eye exam: Present: normal appearance, PERRL, EOMI. Absent: scleral icterus, conjunctival injection, periorbital swelling ENT exam: Present: normal exam, mucous membranes moist Neck exam: Present: normal inspection. Absent: tenderness, meningismus, lymphadenopathy Respiratory exam: Present: normal lung sounds bilaterally. Absent: respiratory distress, wheezes, rales, rhonchi, stridor Cardiovascular Exam: Present: regular rate, normal rhythm, normal heart sounds. Absent: systolic murmur, diastolic murmur, rubs, gallop, clicks GI/Abdominal exam: Present: soft, normal bowel sounds. Absent: distended, tenderness, guarding, rebound, rigid Extremities exam: Present: normal inspection, full ROM, normal capillary refill. Absent: tenderness, pedal edema, joint swelling, calf tenderness Back exam: Present: normal inspection Neurological exam: Present: alert, oriented X3, CN II-XII intact Psychiatric exam: Present: normal affect, normal mood Skin exam: Present: warm, dry, intact, normal color. Absent: rash Course Vital Signs 08/19/24 08/19/24 10:17 12:30 Temperature 98.6 F 97.8 F Pulse Rate 92 64 Respiratory 16 18 Rate Blood Pressure 138/83 118/71 O2 Sat by Pulse 98 98 Oximetry Medical Decision Making - Medical Decision Making Was pt. sent in by a medical professional or institution (, PA, PACKER, urgent care, hospital, or halfway...) When possible be specific @ -No Did you speak to anyone other than the patient for history (EMS, parent, family, police, friend...)? What history was obtained from this source @ -No Did you review nursing and triage notes (agree or disagree)? Why? @ -I reviewed and agree with nursing and triage notes Were old charts reviewed (outside hosp., previous admission, EMS record, old EKG, old radiological studies, urgent care reports/EKG's, halfway records)? Report findings @ -I reviewed the ultrasound report from the Differential Diagnosis (chest pain, altered mental status, abdominal pain women, abdominal pain men, vaginal bleeding, weakness, fever, dyspnea, syncope, headache, dizziness, GI bleed, back pain, seizure, CVA, palpatations, mental health, musculoskeletal)? @ -Differential Vaginal Bleeding: Spontaneous , threatened , molar , ectopic , bloody show, incompetent cervix, abruptioplacenta, placenta previa, uterine rupture, dysfunctional uterine bleeding, hemorrhage, uterine fibroids, this is not meant to be an all-inclusive list. EKG interpreted by me (3pts min.). @ -Not done X-rays interpreted by me (1pt min.). @ -None done CT interpreted by me (1pt min.). @ -None done U/S interpreted by me (1pt. min.). @ -None done What testing was considered but not performed or refused? (CT, X-rays, U/S, labs)? Why? @ -Ultrasound was considered however patient has very low beta quant What meds were considered but not given or refused? Why? @ -None Did you discuss the management of the patient with other professionals (professionals i.e. , PA, PACKER, lab, RT, psych nurse, child welfare social worker, intravenous therapy nurse, teacher, chemistry technical officer, disease case manager)? Give summary @ -Spoke with the on-call JANITOR CLEANER Dr. Flores. She is aware of the patient's case and the need for repeat blood work in 2 days Was smoking cessation discussed for >3mins.? @ -No Was critical care preformed (if so, how long)? @ -No Were there social determinants of health that impacted care today? How? (Homelessness, low income, unemployed, alcoholism, drug addiction, transportation, low edu. Level, literacy, decrease access to med. care, assisted, rehab)? @ -No Was there de-escalation of care discussed even if they declined (Discuss DNR or withdrawal of care, Hospice)? DNR status @ -No What co-morbidities impacted this encounter? (DM, HTN, Smoking, COPD, CAD, Cancer, CVA, ARF, Chemo, Hep., AIDS, mental health diagnosis, sleep apnea, morbid obesity)? @ -None Was patient admitted / discharged? Hospital course, mention meds given and route, prescriptions, significant lab abnormalities, going to OR and other pertinent info. @ -Upon arrival patient seen in room 20. Thorough history and physical exam was performed. States her bleeding is controlled at this time. I did obtain an IV and conducted laboratory studies. Beta quant is low at this time therefore ultrasound is likely to be not helpful. I did discuss the results with the on- call JANITOR CLEANER. They report that they need a repeat beta quant in 2 days. Results will be sent to their office. They will follow-up with the patient. She is made aware that the concern is for miscarriage versus ectopic . Patient is instructed to return to the emergency department for any new or worsening symptoms. Patient aware and discharged in stable condition Undiagnosed new problem with uncertain prognosis? @ -Yes Drug Therapy requiring intensive monitoring for toxicity (Heparin, Nitro, Insulin, Cardizem)? @ -No Were any procedures done? @ -No Diagnosis/symptom? @ -Acute abnormal vaginal bleeding, positive of undetermined location Acute, or Chronic, or Acute on Chronic? @ -Acute Uncomplicated (without systemic symptoms) or Complicated (systemic symptoms)? @ -Complicated Side effects of treatment? @ -No Exacerbation, Progression, or Severe Exacerbation? @ -No Poses a threat to life or bodily function? How? (Chest pain, USA, [place], pneumonia, PE, COPD, DKA, ARF, appy, cholecystitis, CVA, Diverticulitis, Homicidal, Suicidal, threat to staff... and all critical care pts) @ -Yes as patient could have ectopic - Lab Data Result diagrams: 08/19/24 10:40 08/19/24 10:40 Lab Results 08/19/24 08/19/24 Range/Units 10:40 10:40 WBC 8.5 (3.8-10.6) k/uL RBC 4.46 (3.80-5.40) m/uL Hgb 13.2 (11.4-16.0) gm/dL Hct 39.0 (34.0-46.0) % MCV 87.5 (80.0-100.0) fL MCH 29.6 (25.0-35.0) pg MCHC 33.8 (31.0-37.0) g/dL RDW 12.7 (11.5-15.5) % Plt Count 269 (150-450) k/uL MPV 8.9 Neutrophils % 58 % Lymphocytes % 35 % Monocytes % 4 % Eosinophils % 1 % Basophils % 1 % Neutrophils # 4.9 (1.3-7.7) k/uL Lymphocytes # 3.0 (1.0-4.8) k/uL Monocytes # 0.3 (0-1.0) k/uL Eosinophils # 0.1 (0-0.7) k/uL Basophils # 0.0 (0-0.2) k/uL Sodium 137 (137-145) mmol/L Potassium 3.8 (3.5-5.1) mmol/L Chloride 108 H (98-107) mmol/L Carbon Dioxide 21 L (22-30) mmol/L Anion Gap 8 mmol/L BUN 11 (7-17) mg/dL Creatinine 0.70 (0.52-1.04) mg/dL Est GFR (CKD-EPI)AfAm >90 (>60 ml/min/1.73 sqM) Est GFR (CKD-EPI)NonAf >90 (>60 ml/min/1.73 sqM) Glucose 107 H (74-99) mg/dL Calcium 9.7 (8.4-10.2) mg/dL Total Bilirubin 0.6 (0.2-1.3) mg/dL AST 22 (14-36) U/L ALT 16 (4-34) U/L Alkaline Phosphatase 56 (38-126) U/L Total Protein 7.6 (6.3-8.2) g/dL Albumin 4.6 (3.5-5.0) g/dL HCG, Quant 167.6 mIU/mL Disposition Clinical Impression: Threatened Disposition: HOME SELF-CARE Condition: Stable Instructions (If sedation given, give patient instructions): Threatened Miscarriage (ED) Additional Instructions: Please follow-up with Dr. Flores. You will return to the outpatient lab on Saturday to have your hormone level redrawn. The results will be sent to Dr. Flores and she will direct you further from there. If you are having difficulty making an appointment, make staff aware that Dr. Flores is aware of what is going on. If you have any lower abdominal pain or increased heavy bleeding you need to return to the emergency department. Is patient prescribed a controlled substance at d/c from ED?: No Referrals: Leny Donahue MD [Primary Care Provider] - 1-2 days Selin Floers DO [Doctor of Osteopathic Medicine] - 1-2 days Time of Disposition: 12:23
[2024-08-19 12:33] VITALS: BP 118/71; PULSE 64; RESP 18; TEMP 97.8
== END 2024-08-19 12:35 | disposition home or self-care (01) ==
LOC: EC 10:14
DX: O20.0 Threatened abortion (principal); Z88.1 Allergy status to other antibiotic agents; Z3A.01 Less than 8 weeks gestation of pregnancy
CPT/HCPCS: 36415; 80053; 84702; 85025; 99284

== ENCOUNTER → 2024-08-21 | Outpatient (CLI) | payer BC, OTHER | END | disposition home or self-care (01) | LOC: LABWHC1 08:16 | PROVIDERS: ATTEND Emergency Medicine | DX: O20.0 Threatened abortion (principal) | CPT/HCPCS: 36415; 84702 ==

== ENCOUNTER → 2024-08-24 | Outpatient (CLI) | payer BC, OTHER ==
[2024-08-24 14:52] LABS: HCG,Quantitative Serum 25.4 mIU/mL
== END | disposition home or self-care (01) ==
LOC: LABWHC1 13:23
PROVIDERS: ATTEND Obstetrics & Gynecology
DX: O00.90 Unspecified ectopic pregnancy without intrauterine pregnancy (principal); Z3A.00 Weeks of gestation of pregnancy not specified
CPT/HCPCS: 36415; 84450; 84460; 84702

== ENCOUNTER → 2024-08-24 | Outpatient (CLI) | payer BC, OTHER ==
[2024-08-24 14:13] VITALS: BP 111/75; PULSE 52; RESP 16; TEMP 97.8
[2024-08-24] MEDS: METHOTREXATE SODIUM (PF) 25 MG/ML 2 ML VIAL IM NR (14:40)
== END ==
LOC: PROCWHC3 14:02
PROVIDERS: ATTEND Obstetrics & Gynecology
DX: O00.90 Unspecified ectopic pregnancy without intrauterine pregnancy (principal)
CPT/HCPCS: 96402; J9260; 96401

== ENCOUNTER → 2025-03-16 | Outpatient (CLI) | payer OTHER ==
[2025-03-16 11:03] VITALS: BP 120/79; PULSE 69; RESP 16; TEMP 98.3; BMI 27.6
--- NOTE | 2025-03-16 11:41 | P.BASOAP ---
Subjective Progress Note Date: 03/16/25 Principal diagnosis: Morbid obesity 34-year-old female known to our service. Underwent sleeve gastrectomy last April. Only saw me once postop. Has done well. BMI down to 27. Only mild reflux. Takes antiacids as needed. No vomiting. No dysphagia. Over the last 1 to 2 weeks has had some left sided flank pain and suprapubic pain with dysuria and hematuria. X-ray was obtained showing possible catheter in left side of abdomen. No definite stone was described. No additional imaging ordered yet. No history of known kidney stones. Objective - Vital Signs Vital signs: Vital Signs Temp 98.3 F 03/16/25 11:00 Pulse 69 03/16/25 11:00 Resp 16 03/16/25 11:00 BP 120/79 03/16/25 11:00 Pulse Ox FiO2 Intake & Output 03/15/25 03/16/25 03/16/25 18:59 06:59 18:59 Weight 70.845 kg - Exam Abdomen: Soft, nontender, nondistended Assessment/Plan (1) Morbid obesity with BMI of 40.0-44.9, adult Narrative/Plan: 34-year-old female with morbid obesity. Doing well after prior sleeve gastrectomy. Patient with recent dysuria and hematuria with left-sided flank pain. Catheter described left side of abdomen. Catheter as described may represent the staple line from the previously. Will order CT abdomen pelvis without contrast to evaluate for ureterolithiasis. Will call patient with CAT scan findings. Check annual blood work. Continue as needed antiacids. Follow- up bariatric center 6 months. Plan: Date: 03/16/25 Initial Weight: 109.401 kg Initial BMI: 42.7 Current Weight: 70.845 kg Current BMI: 27.6 Type of Surgery: Vertical Sleeve Gastrectomy Total Volume in Band: Previous Volume: Volume Removed: Volume Added: Band Size:
== END ==
LOC: BARWHC3 08:49
PROVIDERS: ATTEND Surgery
DX: E66.01 Morbid (severe) obesity due to excess calories (principal); Z68.27 Body mass index [BMI] 27.0-27.9, adult; Z88.1 Allergy status to other antibiotic agents
CPT/HCPCS: 99211

== ENCOUNTER → 2025-03-25 | Outpatient (CLI) | payer OTHER ==
--- NOTE | 2025-03-25 09:18 | US ---
EXAMINATION TYPE: US abdomen complete DATE OF EXAM: 03/25/2025 COMPARISON: US 2023, CT 2015 CLINICAL INDICATION: Female, 34 years old with history of R10.9 LEFT FLANK PAIN T18.9XXA; Left abdomi nal pain. Patient states they saw a foreign body in the left abdomen on Xray. Hx gastric sleeve, appendectomy, cholecystectomy. TECHNIQUE: Grayscale and color Doppler imaging of the abdomen was performed. FINDINGS: EXAM MEASUREMENTS: Liver Length: 15.8 cm Gallbladder: Surgically absent CBD: 0.39 cm, color Doppler imaging was utilized to isolate the common bile duct for measurement. Spleen: 11.3 cm Right Kidney: 11.2 x 5.3 x 3.9 cm Left Kidney: 11.1 x 5.0 x 5.5 cm [employer] NOTES: Exam is limited due to gas. Pancreas: Limited, not well seen. Liver: wnl, no dilated ducts, masses or cysts. Gallbladder: Surgically absent Evidence for sonographic Zambrano's sign: No CBD: wnl Spleen: wnl Right Kidney: wnl, No hydronephrosis, calculi or masses seen Left Kidney: wnl, No hydronephrosis, calculi or masses seen Upper IVC: wnl Abd Aorta: wnl IMPRESSION: Suboptimal visualization of the pancreas. Patient status post cholecystectomy. Otherwise, unremarkabl e sonographic examination of the abdomen. [facility], , 03/25/2025 9:16 AM
[2025-03-25 15:26] LABS: HCT 38.8 % (37.2-46.3); HGB 12.7 g/dL (12.0-15.0); MCH 28.9 pg (27.0-32.0); MCHC 32.7 g/dL (32.0-37.0); MCV 88.2 FL (80.0-97.0); NRBC Per 100 WBC 0 X 10*3/uL (0.00-0.01); Platelet Count 241 X 10*3/uL (140-440); RBC 4.40 X 10*6/uL (4.10-5.20); RDW 12.7 % (11.5-14.5); WBC 5.42 X 10*3/uL (4.50-10.00)
[2025-03-25 16:02] LABS: ALT 12 U/L (8-44); AST 16 U/L (13-35); Albumin 4.6 g/dL (3.8-4.9); Albumin/Globulin Ratio 1.77 Ratio (1.60-3.17); Alkaline Phosphatase 48 U/L (41-126); Anion Gap 11.10 mmol/L (4.00-12.00); BUN/Creat Ratio 20.14 Ratio (12.00-20.00); Blood Urea Nitrogen 14.1 mg/dL (9.0-27.0); Calcium 9.7 mg/dL (8.7-10.3); Carbon Dioxide 24.9 mmol/L (21.6-31.8); Chloride 104 mmol/L (96-109); Globulin 2.6 g/dL (1.6-3.3); Glucose 89 mg/dL (70-110); Iron 101 UG/DL (50-170); Potassium 5.0 mmol/L (3.5-5.5); Sodium 140 mmol/L (135-145); Total Protein 7.2 g/dL (6.2-8.2); Vitamin B12 533.0 pg/mL (200.0-944.0)
== END | disposition home or self-care (01) ==
LOC: RADUSWWP 08:05
PROVIDERS: ATTEND Family Medicine
DX: R10.9 Unspecified abdominal pain (principal); T18.9XXA Foreign body of alimentary tract, part unspecified, initial encounter; E55.9 Vitamin D deficiency, unspecified; Z90.49 Acquired absence of other specified parts of digestive tract
CPT/HCPCS: 76700; 80053; 82306; 82607; 82746; 83540; 84425; 85027